=== PATIENT | male | born 1945 | race Caucasian/White ===

== ENCOUNTER → 2016-11-03 | Outpatient (CLI) | payer BC ==
[~2016-11-03] MED LIST: CALC500C70 PO; CYCL1CAP10 PO; CYCL25CA5 PO; FERR325T51 PO; LISI-729 PO; MAGNESIUM PO; MYCO250C26 PO; NXM/40 PO; PRED1SUS3 OPL; PRVC/40 PO; SERT-234 PO
--- NOTE | 2016-11-03 12:52 | DIAGNOSTIC IMAGING REPORT ---
CHEST 2 VIEWS ROUTINE CLINICAL HISTORY: Cough. COMPARISON STUDY: Chest radiograph October 07, 2007. FINDINGS: There are median sternotomy wires. No pneumothorax is present. Mild cardiomegaly is unchanged. There is no evidence of pulmonary edema. There is no lobar consolidation. Mild elevation of the right hemidiaphragm is unchanged. Apparent pleural opacity within the lower aspect of the right lower hemithorax could reflect extrapleural fat or less likely a pleural effusion. IMPRESSION: 1. Stable cardia megaly. No evidence of pulmonary edema. 2. No consolidation to suggest pneumonia. 3. Pleural opacity within the right hemithorax which likely may reflect extrapleural fat. A pleural effusion could appear similar although is considered less likely. Short-term radiographic follow-up is recommended. Electronically signed by: Everett Garrison M.D. 11/03/2016 12:51 PM Dictated Date/Time: 11/03/2016 12:48 PM
== END | disposition home or self-care (01) ==
LOC: C.RAD1850 11:56
PROVIDERS: ATTEND Family Medicine
DX: R05 Cough (principal); I51.7 Cardiomegaly; R91.8 Other nonspecific abnormal finding of lung field

== ENCOUNTER 2020-11-13 10:58 | Inpatient (IN) ==
[2020-11-13] MEDS ORDERED: clonazePAM 1 MG TAB PO PRN (12:45)
[2020-11-13] MEDS ORDERED: ALUMINUM/MAGNESIUM SUSP 30 ML UDC PO PRN (12:52)
[2020-11-13] MEDS ORDERED: HYDROmorphone INJ 0.5 MG/0.5 ML SYR IV PRN (12:52)
[2020-11-13] MEDS ORDERED: POLYETHYLENE (MIRALAX) 17 GM PACK PO PRN (12:52)
[2020-11-13] MEDS ORDERED: ONDANSETRON INJ 2 MG/ML 2 ML VIAL IV PRN (12:52)
[2020-11-13] MEDS ORDERED: SODIUM CHLORIDE 0.9% 1000ML 1,000 ML IV SCH (13:15)
--- NOTE | 2020-11-13 13:18 | XRay Report ---
SINGLE VIEW CHEST CLINICAL HISTORY: Atypical chest pain. FINDINGS: An AP, portable, upright chest radiograph is compared to study dated 07/19/2019. Correlatio n is made with radiation treatment planning CT of the chest dated 11/07/2020. The examination is degra ded by portable technique and patient rotation. The patient is status post midline sternotomy. The he art is enlarged noting atherosclerotic calcification of thoracic aorta. The pulmonary vasculature is noncongested. A large mass lesion is again seen at the right lung base with elevation of the right he midiaphragm. There is no airspace consolidation typical for pneumonia or large pleural effusion. No p neumothorax is seen. The skeletal structures are osteopenic. The bony thorax is grossly intact. IMPRESSION: 1. Cardiomegaly with no acute cardiopulmonary abnormality. 2. A large mass lesion is again seen at the right lung base.. ACT 112: Negative or not required by law. Electronically signed by: Quentin Malagon M.D. 11/13/2020 1:16 PM
[2020-11-13] MEDS: ACETAMINOPHEN 500 MG TAB PO SCH ×2 (13:48→20:57)
[2020-11-13] MEDS: HYDROmorphone INJ 1 MG/ML SYRINGE IV PRN ×2 (13:49→17:30)
--- NOTE | 2020-11-13 16:31 | History & Physical Report ---
Date of Service November 13, 2020 Assessment & Plan (1) Cancer associated pain: Patient has a right-sided pleuritic chest pain associated with his non- small cell cancer. Will use hydromorphone and scheduled Tylenol at this point time considering other agents such as nonsteroidals may consider positive care consult for pain management also considering if he should see anesthesia pain management may be helpful if we cannot control his pain with parenteral or oral agents (2) Depression with anxiety: Patient continues on clonazepam at night as needed and sertraline daily (3) Heart transplant recipient: Does not have any evidence of congestive change continues on sirolimus (4) DVT prophylaxis: Lovenox for DVT prevention Admission and Anticipated Discharge Date Admission Date: November 13, 2020 History of Present Illness Primary Care Provider: Walter Araujo MD 75-year-old male who with a history of heart transplant 2008 from ischemic cardiomyopathy with history of chronic kidney disease stage III anxiety depression hyperlipidemia. Patient has significant smoking history prior to quitting at age 55 after an UT after previous CABG the patient was bridged with an LVAD and eventually underwent cardiac transplantation in February 2008. Sometime around the end of 2019 the patient experienced weight loss and increasing cough. CT scan of the chest showed a 6 cm right lower lobe lung mass biopsy was performed with poorly differentiated non-small cell lung cancer with focal squamous differentiation notes from [facility] described T4 N0 M0 stage IIIa non-small cell lung cancer. At that time he had cardiopulmonary testing. Multidisciplinary recommendations were to possibly consider pulmonary section however his cardiopulmonary testing was unfavorable feeling that with the amount of lung removed patient would not have a good performance post procedure. Patient did visit Dr. Carty and the cancer [facility] here at [facility] and is scheduled for chemotherapy initiation on November 15 however was developing worsening pleuritic right-sided chest pain which was incapacitating and necessitated admission to the hospital for oncological pain control Allergies Allergy/AdvReac Type Severity Reaction Status Date / Time No Known Allergies Allergy Unknown Verified 10/31/20 13:29 Home Medications Medication Instructions Recorded Confirmed Type acetaminophen [Tylenol] 325 mg PO Q6H PRN 07/19/19 10/31/20 History calcium carbonate-vitamin D3 1 tab PO QAM 07/19/19 10/31/20 History [Calcium 500 With D] clonazepam 1 mg PO HS PRN 07/19/19 10/31/20 History esomeprazole magnesium 40 mg PO DAILY 07/19/19 10/31/20 History ferrous sulfate 325 mg PO BID 07/19/19 10/31/20 History magnesium 500 mg PO QAM 07/19/19 10/31/20 History sertraline 150 mg PO DAILY 07/19/19 10/31/20 History sirolimus 1 mg PO DAILY 07/19/19 10/31/20 History hydrochlorothiazide 25 mg tablet 25 mg PO DAILY 10/31/20 10/31/20 History pravastatin 40 mg tablet 20 mg PO QPM tab 10/31/20 10/31/20 History Past Med/Surg History Medical History (Updated 11/13/20 @ 16:35 by Ankit Merida MD) Coronary artery disease Dyslipidemia GERD (gastroesophageal reflux disease) Heart transplant recipient History of diverticulitis Hypertension Ischemic cardiomyopathy Surgical History (Updated 10/31/20 @ 13:31 by Eun Mehta RN) History of bronchoscopy History of cataract surgery Family History (Updated 10/31/20 @ 13:32 by Eun Mehta RN) Brother Cancer Bladder Other Family history non-contributory Social History (Updated 10/31/20 @ 13:36 by Eun Mehta RN) Smoking Status: Former smoker Tobacco Type: Cigarettes Second Hand Exposure: No; Do You Dip or Chew Tobacco: No; Hx Alcohol Use: No Hx Substance Use: No Preferred Language: Italian Communication Ability: Effective Visual Impairment: No Limitations Hearing Ability: Normal Roll Tester Required: No Beliefs That Will Affect Care: None marital status: Current Living Situation: Spouse current occupational status: employed Other Information That Helps Us Care for You: No Feels Safe at Home: Yes Safety Concerns: Feels Safe At This Time caffeine: Yes during the past year weight has: decreased > 10 lbs Dental Care, Regularly: No Physical Activity Frequency: 3-4 Times per Week Assistive Devices: Denture - Upper, Denture - Lower and Glasses Review of Systems Review of Systems: Mild distress and fatigue no headache, blurry or double vision no speech or swallowing issues Chest pain right-sided pleuritic and positional rated up to 10/10 at times no shortness of breath, cough or wheezes no abdominal pain, nausea or vomiting, diarrhea or constipation no dysuria, hematuria or frequency no focal joint pain or swelling no back pain, CVA tenderness or radicular pain no bruising, bleeding or rashes no focal signs of weakness or numbness or altered sensation no complaints of anxiety or depression.. Physical Exam Physical Exam: The patient appeared thin and somewhat chronically ill Vital signs as documented. Head exam is normocephalic atraumatic no scleral icterus Neck is without JVD, thyromegaly, or carotid bruits. Lungs are clear to auscultation, with exception of focal rales at the right base Cardiac exam, Rhythm is regular.. No murmurs, rubs or gallops. Pain is reproducible with examination of his right chest wall although no overt lesions were seen Abdominal exam reveals normal bowel sounds, soft non tender, no masses Extremities are nonedematous and both pedal pulses are present Neurologic exam is alert and oriented, no focal loss of strength or sensation Skin is without bruises or rashes Psychologically is without concerns for anxiety or depression Results & Data Results & Data ([facility]) Vital Signs (Past 12 Hours) Vital Signs Temp Pulse Resp BP Pulse Ox 11/13/20 15:46 98.1 F 96 H 20 111/66 91 11/13/20 13:37 98.1 F 98 H 16 102/66 92 chest x-ray showing large mass in the right lung base Code Status & VTE Plan VTE Prophylaxis Plan VTE Prophylaxis will be ordered: Yes PG Care Time/CCT Total # of Minutes Spent Total Time Spent with Patient: Total time spent is greater than 50% in coor dination of care (as documented) at patient's floor/unit and/or counseling patient: Coding Level of Care Code 99477 Initial Inpt Care Lvl 3 Diagnoses Cancer associated pain G89.3 Depression with anxiety F41.8 Heart transplant recipient Z94.1 DVT prophylaxis Z29.9
[2020-11-13] MEDS: SIROLIMUS 0.5 MG TABLET PO SCH (17:31)
[2020-11-14] MEDS: HYDROmorphone INJ 1 MG/ML SYRINGE IV PRN ×3 (00:07→21:01)
[2020-11-14 05:54] LABS: Hematocrit (blood only) 34.1 % (42-52); Hemoglobin 10.5 g/dL (14.0-18.0); Mean Corpuscular Hgb Conc 30.8 g/dL (32-36); Mean Platelet Volume 8.2 fL (7.4-10.4); Platelet Count 498 K/uL (130-400); RDW Coefficient of Variation 17.9 % (11.5-14.5); RDW Standard Deviation 51.4 fL (36.4-46.3); Red Blood Count 4.37 M/uL (4.7-6.1); White Blood Count 11.64 K/uL (4.8-10.8)
[2020-11-14 06:28] LABS: BUN Creatinine Ratio 20.3 (10-20); Calcium 8.4 mg/dl (8.5-10.1); Creatinine Clr Calc Pharmacy 50.6 ml/min; Est GFR (African American) 73.6; Est GFR (Non-African American) 63.5; Potassium 2.8 mmol/L (3.5-5.1)
[2020-11-14] MEDS ORDERED: POTASSIUM CHLORIDE 10 MEQ / 100ML WTR IV STA (08:26)
[2020-11-14] MEDS: ACETAMINOPHEN 500 MG TAB PO SCH ×3 (08:45→20:57)
[2020-11-14] MEDS: SIROLIMUS 0.5 MG TABLET PO SCH (08:45)
[2020-11-14] MEDS ORDERED: MAGNESIUM SULFATE / D5W 1 GM/100 ML BAG IV ONE (08:45)
[2020-11-14] MEDS: SERTRALINE HCL 50 MG TABLET PO SCH (08:45)
[2020-11-14] MEDS: HYDROmorphone HCL 2 MG TAB PO SCH ×3 (08:45→21:00)
[2020-11-14] MEDS: PANTOprazole 40 MG TAB PO SCH (08:45)
[2020-11-14] MEDS: POTASSIUM CHLORIDE CRTAB 20 MEQ TABCR PO SCH ×2 (09:59→20:57)
[2020-11-14] MEDS: ENOXAPARIN INJ 40 MG/0.4 ML SYR SQ SCH (10:00)
[2020-11-14] MEDS: POTASSIUM CHLORIDE / WTR 10 MEQ/100 ML PLCT IV SCH ×3 (10:01→12:27)
--- NOTE | 2020-11-14 12:21 | Consultation Report ---
DATE OF CONSULTATION: 11/14/2020 MEDICAL ONCOLOGY CONSULTATION REASON FOR CONSULTATION: Intractable musculoskeletal pain associated with locally advanced non-small cell lung cancer. 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 The patient was sent to the Emergency Room by Mary Ellen Maki, our physician pig machine operator helper after Mr. Carnes called in complaining of uncontrolled pain. When I saw him initially, he had been battling with musculoskeletal pain as well as anorexia. He was subsequently started on Marinol 5 mg p.o. t.i.d. as well as oxycodone 5 mg p.o. q.4-6 hours as needed. Apparently, he was becoming significantly nauseated on the oxycodone and at the same time, his pain was poorly controlled. I had subsequently prescribed fentanyl patch 12 mcg topically q.72 hours; however, Jamil was reluctant to pursue this option out of fear of nausea. Subsequently, he was admitted to [facility] yesterday basically for pain control. Again, he was originally diagnosed with lung cancer back in August, at which time he had lost approximately 40 pounds and was battling with persistent diarrhea and generalized weakness. Chest x-ray done at that time had revealed a right pulmonary anomaly that enlarged from a few months prior. A confirmatory CT scan of the chest confirmed a 6 cm right lower lobe mass, subsequently biopsied in August confirming squamous cell carcinoma. Multiple lymph nodes were harvested, which were all negative. This gentleman was suffering from stage IIIA inoperable lung cancer. Apparently, his case was presented to [facility]'s Tumor Board where most of his workup took place and it was decided to proceed with chemoradiation. Thus, Jamil was scheduled to start a combination carboplatin and paclitaxel on 11/15/2020. Thus far on admission, he has received IV Dilaudid and seems to be tolerating well. He appeared quite comfortable and perhaps could be discharged within the next 24 hours to maintain his treatment schedule. I have been asked to see Jamil today to make recommendations specifically for pain management moving forward. PAST MEDICAL HISTORY: Again, locally advanced non-small cell lung cancer (squamous cell carcinoma) stage IIIA, coronary artery disease, dyslipidemia, gastroesophageal reflux disease. He is status post heart transplant in 2007, diverticulitis, history of hypertension and ischemic cardiomyopathy. PAST SURGICAL HISTORY: Includes a heart transplant, bronchoscopy, and cataract surgery. MEDICATIONS: Include pravastatin 20 mg p.o. daily, hydrochlorothiazide 25 mg p.o. daily, sirolimus 1 mg p.o. daily, sertraline 150 mg p.o. daily, magnesium 500 mg p.o. daily, ferrous sulfate 325 mg p.o. b.i.d., esomeprazole 40 mg p.o. daily, clonazepam 1 mg p.o. at bedtime p.r.n., calcium carbonate 1 tablet p.o. daily, and Tylenol 325 p.o. q.6 hours p.r.n. ALLERGIES: No known drug allergies. SOCIAL HISTORY: The patient is and resides with his spouse. He is negative for alcohol or illicit drugs. He had a [id number] smoking history. FAMILY HISTORY: His brother suffers from bladder cancer. No other pertinent family history. REVIEW OF SYSTEMS: CONSTITUTIONAL: Most notably for pleuritic chest wall pain. Positive for anorexia. Positive for weight loss. Prescribed Marinol, has yet to start. No fevers, chills or sweats. SKIN: No rashes or lesions. No history of dermatoses. HEENT: Denies headaches, lightheadedness or dizziness. No acute visual or hearing deficits. No sinus symptoms, sore throat or dysphagia. LYMPHATICS: No history of lymphoproliferative disease. CARDIAC: No current angina or palpitations. PULMONARY: He is not acutely short of breath, dyspneic or orthopneic. No cough or hemoptysis. GASTROINTESTINAL: Negative for abdominal pain. Positive for intermittent nausea related to oral opioids. No diarrhea or constipation. No hematochezia or melena stools. GENITOURINARY: No hematuria, dysuria or urinary incontinence. PSYCHIATRIC: Positive for anxiety. ENDOCRINE: Negative for diabetes or thyroid disease. MUSCULOSKELETAL: No arthralgias or myalgias. No focal muscle weakness. NEUROLOGIC: Negative for seizure, stroke, or migraine headache. HEMATOLOGIC: Positive for microcytic anemia. PHYSICAL EXAMINATION: GENERAL: A very pleasant 75-year-old gentleman, awake, alert and appropriate, in no acute distress. SKIN: Warm, dry, noncyanotic without petechia, rash or ecchymosis. HEENT: Head: Atraumatic, normocephalic. Eyes: PERRLA, EOMI. Nares patent without rhinorrhea or discharge. Throat clear. Tongue midline. Mucous membranes are moist. No buccal lesions or ulcerations. NECK: Supple without JVD or thyromegaly. LYMPHATICS: No cervical or supraclavicular palpable nodes. HEART: Regular rate and rhythm. No clicks, rubs, murmurs or gallops. LUNGS: Clear to auscultation bilaterally. ABDOMEN: Soft, nontender, nondistended, without palpable hepatosplenomegaly. EXTREMITIES: No calf tenderness or swelling. No clubbing, cyanosis or edema. NEUROLOGICAL: He is awake, alert and oriented x3. Cranial nerves are grossly intact. LABORATORY DATA: WBC count 11,640, hemoglobin 10.5, platelet count 498,000. Sodium 132, potassium 2.8, chloride 88, carbon dioxide 40, creatinine 1.12, BUN 23. RADIOGRAPHIC DATA: Chest x-ray reveals cardiomegaly with no acute cardiopulmonary anomaly and a large mass lesion is seen in the right lung base. IMPRESSION: 1. Intractable chest wall pain/pleuritic chest pain attributable to nonsmall cell lung cancer. 2. Stage IIIA squamous cell carcinoma of the lung. 3. Depression/anxiety. 4. Status post heart transplant. 5. Anorexia/weight loss. 6. Microcytic anemia. PLAN: Jamil is a pleasant, somewhat unfortunate 75-year-old gentleman who was diagnosed with nonsmall cell lung cancer in August. Jamil initially visited with me on November accompanied by his . When I saw him, they were very concerned with the treatment delay. Apparently, he was originally worked up at the [facility] and because of miscommunication, Jamil and his had decided to seek care at [facility]. Thus, when I initially saw him, he had several clinical issues including ongoing anorexia and uncontrolled pain. Both of those issues were addressed, but unfortunately Jamil developed nausea on oxycodone plus the fact that his pain was poorly controlled. Thus, I tried to prescribe him fentanyl topical patch, which apparently he was reluctant to begin out of fear of nausea and thus continues to struggle with pain issues. He subsequently called the office and was instructed by our physician pig machine operator helper to be admitted for pain control. Hospitalist service has done a terrific job starting Dilaudid, which seems to be effective. Jamil told me at bedside this morning that his nausea has improved dramatically. Perhaps we can convert him to oral hydromorphone and send him home, so he may begin his treatment as scheduled on 11/15/2020. He has an underlying microcytic anemia that I can address once he is out, perhaps give him some IV iron to improve his iron stores. Perhaps we can get a ferritin, serum iron, and TIBC prior to discharge. Jamil understands the urgency of getting his treatment underway as unfortunately he has been delayed for nearly 3 months. I agree with medical management otherwise and I have nothing further to add. We will discuss further with the hospitalist service later on today. We will arrange for outpatient followup for Mr. Carnes. Thank you very much for allowing me to participate in his care.
[2020-11-14] MEDS: HYDROmorphone HCL 2 MG TAB PO PRN (14:01)
[2020-11-14] MEDS ORDERED: LORazepam 0.5 MG TAB PO PRN (15:07)
--- NOTE | 2020-11-14 15:13 | Hospitalist Progress Note ---
Date of Service November 14, 2020 Assessment & Plan (1) Cancer associated pain: Patient has a right-sided pleuritic chest pain associated with his non- small cell cancer. scheduled dilaudid po and prn dilaudid for breakthru, and fentanyl and continue scheduled Tylenol Pain has improved but is not controlled (2) Depression with anxiety: Patient continues on clonazepam at night as needed and sertraline daily, has some daytime anxiety will add ativan (3) Heart transplant recipient: Does not have any evidence of congestive change continues on sirolimus (4) DVT prophylaxis: Lovenox for DVT prevention Admission and Anticipated Discharge Date Admission Date: November 13, 2020 Subjective patients pain is variably controlled, still with pain and anxiety, will escalate dilaudid with addition or prn doses and start fentanly patch Review of Systems Review of Systems: Moderate pain, distress and fatigue no headache, blurry or double vision no speech or swallowing issues Pleuritic and positional chest pain, without pressure or palpitations no shortness of breath, cough or wheezes no abdominal pain, nausea or vomiting, diarrhea or constipation no dysuria, hematuria or frequency no focal joint pain or swelling no back pain, CVA tenderness or radicular pain no bruising, bleeding or rashes no focal signs of weakness or numbness or altered sensation no complaints of anxiety or depression.. Physical Exam Physical Exam: The patient appeared thin and chronically ill Vital signs as documented. Head exam is normocephalic atraumatic no scleral icterus Neck is without JVD, thyromegaly, or carotid bruits. Lungs are clear to auscultation, no focal loss of breath sounds Cardiac exam, Rhythm is regular.. No murmurs, rubs or gallops. Abdominal exam reveals normal bowel sounds, soft non tender, no masses Extremities are nonedematous and both pedal pulses are present Neurologic exam is alert and oriented, no focal loss of strength or sensation Skin is without bruises or rashes Psychologically is without concerns for anxiety or depression Results & Data Results & Data ([facility]) Vital Signs (Past 12 Hours) Vital Signs Temp Pulse Resp BP Pulse Ox 11/14/20 07:44 97.9 F 98 H 18 117/68 90 11/14/20 03:19 98.1 F 98 H 20 114/70 90 PG Care Time/CCT Total # of Minutes Spent Total Time Spent with Patient: Total time spent is greater than 50% in coordination of care (as documented) at patient's floor/unit and/or counseling patient: Coding Level of Care Code 26838 Subseq Hosp Care Lvl 2 Diagnoses Cancer associated pain G89.3 Depression with anxiety F41.8 Heart transplant recipient Z94.1 DVT prophylaxis Z29.9
[2020-11-14] MEDS ORDERED: fentaNYL 12 MCG/HR TDSY TD SCH (16:00)
[2020-11-14] MEDS: CHECK fentaNYL PATCH PLACEMENT SCH ×2 (16:28→23:53)
[2020-11-15 06:43] LABS: Hematocrit (blood only) 32.7 % (42-52); Hemoglobin 10.5 g/dL (14.0-18.0); Mean Corpuscular Hemoglobin 25.1 pg (25-34); Mean Corpuscular Hgb Conc 32.1 g/dL (32-36); Mean Corpuscular Volume 78.2 fL (80-100); Mean Platelet Volume 8.3 fL (7.4-10.4); Platelet Count 470 K/uL (130-400); RDW Coefficient of Variation 18.1 % (11.5-14.5); RDW Standard Deviation 51.4 fL (36.4-46.3); Red Blood Count 4.18 M/uL (4.7-6.1); White Blood Count 15.65 K/uL (4.8-10.8)
[2020-11-15 07:13] LABS: Basophils # (auto) 0.02 K/uL (0-0.2); Basophils % (auto) 0.1 %; Eosinophils # (auto) 0.09 K/uL (0-0.5); Eosinophils % (auto) 0.6 %; Immature Granulocytes # (auto) 0.04 K/uL (0.00-0.02); Immature Granulocytes % (auto) 0.3 %; Lymphocytes # (auto) 2.32 K/uL (1.2-3.4); Lymphocytes % (auto) 14.8 %; Monocytes # (auto) 1.02 K/uL (0.11-0.59); Monocytes % (auto) 6.5 %; Neutrophils # (auto) 12.16 K/uL (1.4-6.5); Neutrophils % (auto) 77.7 %; Poikilocytosis Present
[2020-11-15 07:24] LABS: Albumin Globulin Ratio 0.5 (0.9-2); Albumin Level 1.8 gm/dl (3.4-5.0); BUN Creatinine Ratio 20.9 (10-20); Bilirubin,Total 0.3 mg/dl (0.2-1); Calcium 8.5 mg/dl (8.5-10.1); Creatinine Clr Calc Pharmacy 60.3 ml/min; Est GFR (African American) 90.9; Est GFR (Non-African American) 78.4; Globulin 3.8 gm/dl (2.5-4.0); Magnesium 1.8 mg/dl (1.8-2.4); Potassium 3.4 mmol/L (3.5-5.1); Total Protein 5.6 gm/dl (6.4-8.2)
[2020-11-15] MEDS: PANTOprazole 40 MG TAB PO SCH (07:52)
[2020-11-15] MEDS: HYDROmorphone HCL 2 MG TAB PO SCH ×2 (07:52→20:18)
[2020-11-15] MEDS: POTASSIUM CHLORIDE CRTAB 20 MEQ TABCR PO SCH (07:52)
[2020-11-15] MEDS: SERTRALINE HCL 50 MG TABLET PO SCH (07:53)
[2020-11-15] MEDS: ACETAMINOPHEN 500 MG TAB PO SCH ×3 (07:53→20:18)
[2020-11-15] MEDS: CHECK fentaNYL PATCH PLACEMENT SCH ×3 (07:53→23:28)
[2020-11-15] MEDS: SIROLIMUS 0.5 MG TABLET PO SCH (07:53)
[2020-11-15] MEDS: ENOXAPARIN INJ 40 MG/0.4 ML SYR SQ SCH (07:53)
[2020-11-15 09:00] LABS: Ferritin 976.9 ng/ml (8-388)
[2020-11-15] MEDS: HYDROmorphone INJ 1 MG/ML SYRINGE IV PRN (12:17)
--- NOTE | 2020-11-15 15:32 | Hospitalist Progress Note ---
Date of Service November 15, 2020 Assessment & Plan (1) Cancer associated pain: Patient has a right-sided pleuritic chest pain associated with his non- small cell cancer. increase scheduled dilaudid to 4 mg po and prn dilaudid for breakthru, and 12 mcg fentanyl and continue scheduled Tylenol Pain has improved but is not controlled (2) Depression with anxiety: Patient continues on clonazepam at night as needed and sertraline daily, has some daytime anxiety will add ativan (3) Heart transplant recipient: Does not have any evidence of congestive change continues on sirolimus (4) DVT prophylaxis: Lovenox for DVT prevention Admission and Anticipated Discharge Date Admission Date: November 13, 2020 Subjective patients feels pain is poorly controlled, still with pain and anxiety, will escalate dilaudid with addition or prn doses and start fentanyl patch Review of Systems Review of Systems: Moderate pain, distress and fatigue no headache, blurry or double vision no speech or swallowing issues Pleuritic and positional chest pain, without pressure or palpitations no shortness of breath, cough or wheezes no abdominal pain, nausea or vomiting, diarrhea or constipation no dysuria, hematuria or frequency no focal joint pain or swelling no back pain, CVA tenderness or radicular pain no bruising, bleeding or rashes no focal signs of weakness or numbness or altered sensation no complaints of anxiety or depression.. Physical Exam Physical Exam: The patient appeared thin and chronically ill Vital signs as documented. Head exam is normocephalic atraumatic no scleral icterus Neck is without JVD, thyromegaly, or carotid bruits. Lungs are clear to auscultation, no focal loss of breath sounds Cardiac exam, Rhythm is regular.. No murmurs, rubs or gallops. Abdominal exam reveals normal bowel sounds, soft non tender, no masses Extremities are nonedematous and both pedal pulses are present Neurologic exam is alert and oriented, no focal loss of strength or sensation Skin is without bruises or rashes Psychologically is without concerns for anxiety or depression Results & Data Results & Data ([facility]) Vital Signs (Past 12 Hours) Vital Signs Temp Pulse Resp BP BP Pulse Ox 11/15/20 12:00 97.9 F 98 H 18 114/63 90 11/15/20 07:03 98.2 F 102 H 18 104/61 90 11/15/20 03:51 98.2 F 96 H 18 112/64 90 PG Care Time/CCT Total # of Minutes Spent Total Time Spent with Patient: Total time spent is greater than 50% in coordination of care (as documented) at patient's floor/unit and/or counseling patient: Coding Level of Care Code 02748 Subseq Hosp Care Lvl 2 Diagnoses Cancer associated pain G89.3 Depression with anxiety F41.8 Heart transplant recipient Z94.1 DVT prophylaxis Z29.9
[2020-11-16] MEDS: HYDROmorphone HCL 2 MG TAB PO PRN (05:51)
[2020-11-16] MEDS: ENOXAPARIN INJ 40 MG/0.4 ML SYR SQ SCH (08:30)
[2020-11-16] MEDS: PANTOprazole 40 MG TAB PO SCH (08:31)
[2020-11-16] MEDS: HYDROmorphone HCL 2 MG TAB PO SCH (08:31)
[2020-11-16] MEDS: SIROLIMUS 0.5 MG TABLET PO SCH (08:32)
[2020-11-16] MEDS: SERTRALINE HCL 50 MG TABLET PO SCH (08:32)
[2020-11-16] MEDS: ACETAMINOPHEN 500 MG TAB PO SCH ×2 (08:33→14:27)
[2020-11-16] MEDS: CHECK fentaNYL PATCH PLACEMENT SCH ×2 (08:34→16:52)
[2020-11-16] MEDS ORDERED: clonazePAM 0.25 MG TAB PO SCH (09:00)
[2020-11-16] MEDS ORDERED: SENNA 8.6 MG TAB PO SCH (09:00)
[2020-11-16 16:30] VITALS: BP 117/70; PULSE 96; TEMP 98.2; O2SAT 93
--- NOTE | 2020-11-16 18:11 | Discharge Summary ---
Date of Service November 16, 2020 Admission HPI Per Admitting Provider 75-year-old male who with a history of heart transplant 2007 from ischemic cardiomyopathy with history of chronic kidney disease stage III anxiety depression hyperlipidemia. Patient has significant smoking history prior to quitting at age 55 after an NC after previous CABG the patient was bridged with an LVAD and eventually underwent cardiac transplantation in February 2008. Sometime around the end of 2019 the patient experienced weight loss and increasing cough. CT scan of the chest showed a 6 cm right lower lobe lung mass biopsy was performed with poorly differentiated non-small cell lung cancer with focal squamous differentiation notes from [facility] described T4 N0 M0 stage IIIa non-small cell lung cancer. At that time he had cardiopulmonary testing. Multidisciplinary recommendations were to possibly consider pulmonary section however his cardiopulmonary testing was unfavorable feeling that with the amount of lung removed patient would not have a good performance post procedure. Patient did visit Dr. Carty and the cancer [facility] here at [facility] and is scheduled for chemotherapy initiation on November 15 however was developing worsening pleuritic right-sided chest pain which was incapacitating and necessitated admission to the hospital for oncological pain control Principal Diagnosis cancer related pain. lung cancer Discharge Exam The patient appeared well nourished and normally developed, he claims to have no significant pain Vital signs as documented. Head exam is normocephalic atraumatic no scleral icterus Neck is without JVD, thyromegaly, or carotid bruits. Lungs are diminished at the base on the right Cardiac exam, Rhythm is regular.. No murmurs, rubs or gallops. Abdominal exam reveals normal bowel sounds, soft non tender, no masses Extremities are nonedematous and both pedal pulses are present Neurologic exam is alert and oriented, no focal loss of strength or sensation Skin is without bruises or rashes Psychologically is without concerns for anxiety or depression Discharge Data Allergies Allergy/AdvReac Type Severity Reaction Status Date / Time No Known Allergies Allergy Unknown Verified 10/31/20 13:29 Consultations 11/13/20 12:55 Consult Hematology Routine Hospital Course (1) Cancer associated pain: Patient has a right-sided pleuritic chest pain associated with his non- small cell cancer. increase scheduled dilaudid to 4 mg po and prn dilaudid for breakthru, and 12 mcg fentanyl and continue scheduled Tylenol Pain has improved but is not controlled (2) Depression with anxiety: Patient continues on clonazepam at night as needed and sertraline daily, has some daytime anxiety will add ativan (3) Heart transplant recipient: Does not have any evidence of congestive change continues on sirolimus (4) DVT prophylaxis: Lovenox for DVT prevention Total Time Total Time Spent Total Time Spent (In Minutes): It required greater than 30 minutes to prepare this patient for discharge Discharge Plan Discharge Items Patient Disposition: Home - Self-Care Reason For Visit: LUNG CA,NEEDS PAIN CONTROL Discharge Diagnosis: oncologic related pain low potassium Activity: Resume your previous activity Non-emergency contact: Primary Care Provider and Oncologist Call non-emergency contact if: you have any medication questions and your symptoms worsen Follow-up/Referrals: Walter Araujo MD [Primary Care Provider] - Diet: Regular Addtl Attending Provider Instructions: please work hard to improve your nutrition, consider taking a multiple vitamin with iron, or even a vitamin, and consider ensure or boost, if your appetite remains poor continue to talk to Dr Carty about your appetite take a daily potassium supplement please be patient with your fentanyl patch, it may need to be adjusted, as well as your pain medicine continue to take 1000mg of tylenol three times a day Pending Studies at Discharge: No Stand-Alone Forms: My [facility] [employer], Opioid Pain Management, Smoking Cessation Medications and DC Order Prescriptions: New fentanyl 12 mcg/hr Patch 72 Hour 12 mcg transdermal Q72H Qty: 10 RF: 0 potassium chloride [Klor-Con M20] 20 mEq Tablet,Er Particles/Crystals 20 meq PO DAILY Qty: 30 RF: 0 hydromorphone [Dilaudid] 2 mg tablet 4 mg PO BID Qty: 60 RF: 0 Continued sertraline 100 mg tablet 150 mg PO DAILY RF: 0 clonazepam 1 mg tablet 1 mg PO HS PRN (Reason: Restless Leg(S)) RF: 0 ferrous sulfate 325 mg (65 mg iron) Tablet 325 mg PO BID RF: 0 esomeprazole magnesium 40 mg capsule,delayed release(DR/EC) 40 mg PO DAILY RF: 0 magnesium 250 mg Tablet 500 mg PO QAM RF: 0 calcium carbonate-vitamin D3 [Calcium 500 With D] 500 mg(1,250mg) -400 unit Tablet 1 tab PO QAM RF: 0 sirolimus 0.5 mg tablet 1 mg PO DAILY RF: 0 Changed acetaminophen [Tylenol] 325 mg Tablet 1,000 mg PO TID PRN (Reason: Pain) Qty: 0 RF: 0 Discontinued hydrochlorothiazide 25 mg tablet 25 mg PO DAILY RF: 0 pravastatin 40 mg tablet 20 mg PO QPM RF: 0 Discharge Orders: Discharge Order (Routine); Ordered 11/16/20 Ordered By: Ankit Silverman/Other Patient Handouts: Pain Medicines for Cancer Admission Data Admit Date/Time: 11/13/20 12:00 Attending Provider: Ankit Merida Admit Provider: Bhupendra Kelsey Primary Care Provider: Walter Araujo Other Providers: Gerald Carty V. Other Interventions: Discharge Summary Assessment (RN) Last Done: 11/16/20 16:42 Coding Level of Care Code D/C Day Management >30 mins Diagnoses Cancer associated pain G89.3 Depression with anxiety F41.8 Heart transplant recipient Z94.1 DVT prophylaxis Z29.9
== END 2020-11-16 17:29 | disposition home or self-care (01) | DRG 948 ==
LOC: SUATTDRO 12:00 → 2N 12:00 → 3E 11-15 23:22

== ENCOUNTER 2021-12-13 15:20 | Inpatient (IN) ==
[2021-12-13] MEDS ORDERED: CEFEPIME 2,000 MG/20 ML VIAL IV STA (15:53)
--- NOTE | 2021-12-13 16:00 | Emergency Department Note ---
Impression & Plan Hypoxia, SOB (shortness of breath), Pneumonia, Immunocompromised, History of heart transplant ED Provider Note NAME: POLA LITTLE AGE: 76 SEX: M : 1945 ARRIVES VIA: Walk-In INFORMANT: [Patient] ED PROVIDER(S): [Quentin Ngo MD] CHIEF COMPLAINT: Shortness of breath HISTORY OF PRESENT ILLNESS: Patient is a 76-year-old male with a history of heart transplant, lung cancer. He presents to the ER with shortness of breath and a dry cough that has been present for about a week. The shortness of breath is noticeable with exertion. There has been no fever, no chills. The patient spoke with the cancer center today, he was referred to the ER for an evaluation. In triage, his O2 saturation was noted to be 86%, he does not wear oxygen. His O2 saturation improved with nasal cannula O2 supplementation. The patient has finished his radiation and chemotherapy for his lung cancer. He is now receiving infusion therapy every 28 days. He is doing well from a heart transplant standpoint. He is on his immunosuppressive medications as directed. 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 He has done well since. He has no issues currently with headache or confusion or one-sided weakness. REVIEW OF SYSTEMS: See HPI for pertinent positives and negatives. A total of ten systems were reviewed and were otherwise negative. PMHx/PSHx: See Below SOCIAL HISTORY: See Below. PHYSICAL EXAM: GENERAL: Patient is in no acute distress. HEENT: No acute trauma, normocephalic atraumatic, mucous membranes moist, no nasal congestion, no scleral icterus. NECK: No stridor, no adenopathy, no meningismus, trachea is midline. LUNGS: Markedly diminished breath sounds on the right with some crackles on the right. No obvious respiratory distress. The left lung is clear. HEART: Subtle systolic murmur, regular rate and rhythm. ABDOMEN: Soft, nontender, bowel sounds positive, no hernias, no peritonitis. EXTREMITIES: No cyanosis or edema, full range of motion of all the joints with out pain or difficulty, no signs for acute trauma. NEUROLOGIC: Oriented x 3, no acute motor or sensory deficits, no focal weakness. SKIN: No rash, no jaundice, no diaphoresis. DIFFERENTIAL DIAGNOSIS: Reactive airway disease, COVID-19, influenza, pneumonia, pneumothorax, COPD, CHF, infection, cardiac ischemia, pulmonary embolism, bronchitis, musculoskeletal, gastrointestinal, as well as other pathologies. EMERGENCY DEPARTMENT COURSE/PROCEDURES: ECG: Indication was shortness of breath. The ECG shows a normal sinus rhythm with a rate of 96. There is a right bundle branch block. There is potential old inferior infarct noted. No ST elevation, no PVCs. The QTc is 487. Compared to an ECG from 26 August 2021, I see no significant change. Continuous Cardiac Monitoring: An order was placed for continuous cardiac monitoring. The monitor shows a rate of 103 with sinus tachycardia. Critical Care Note: I have personally spent 41 minutes of critical care time in the direct management of this patient. This includes bedside care, interpretation of diagnostic studies, and testing, discussion with consultants, patient, and family members, and other required patient management activities. This 41 minutes is in excess of all separately billable procedures. MEDICAL DECISION MAKING: There is no leukocytosis. Patient has a very mild anemia with a hemoglobin of 13.7. There was a normal platelet count. INR was slightly elevated at 1.2. No renal failure. No significant electrolyte abnormality. No significant liver enzyme elevation. ECG shows a normal sinus rhythm, no obvious ischemia. Cardiac enzyme testing x1 is not consistent with acute cardiac injury. Respiratory bio fire panel testing was completely negative. Chest x-ray showed some cardiomegaly and some potential mild CHF--some chronic findings also noted. Chest CT did not show any PE. Multifocal patchy pneumonia was seen. The patient presented hypoxic and short of breath. He was given nasal cannula O2 supplementation. He received IV cefepime and IV doxycycline as antibiotic coverage. The patient has a history of heart transplant. He is immunocompromised. He presents hypoxic and short of breath. He has pneumonia by CT imaging. Given his history and findings, I do think a hospital stay is warranted. I spoke with the patient, I talked to the casey saw operator. The on-call hospitalist has been consulted. Past Med/Surg History Medical History Coronary artery disease Dyslipidemia GERD (gastroesophageal reflux disease) Heart transplant recipient History of diverticulitis Hypertension Ischemic cardiomyopathy Surgical History History of bronchoscopy History of cataract surgery Family History Brother Cancer Bladder Other Family history non-contributory Social History Smoking Status: Former smoker Tobacco Type: Cigarettes Second Hand Exposure: No; Hx Alcohol Use: No Hx Substance Use: No Preferred Language: Serbian Communication Ability: Effective Visual Impairment: No Limitations Hearing Ability: Normal 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 Required: No Beliefs That Will Affect Care: None marital status: Current Living Situation: Spouse current occupational status: employed Feels Safe at Home: Yes caffeine: Yes during the past year weight has: decreased > 10 lbs Dental Care, Regularly: No Physical Activity Frequency: 3-4 Times per Week Assistive Devices: None Allergies Allergies Allergy/AdvReac Type Severity Reaction Status Date / Time lisinopril Allergy Intermediate FACE Verified 12/13/21 17:28 SWELLED Home Meds Home Medications Medication Instructions Recorded Confirmed calcium carbonate 500 mg-vitamin 1 tab PO QAM 07/19/19 12/13/21 D3 10 mcg (400 unit) tablet (Calcium 500 With D) clonazepam 1 mg tablet 1 mg PO HS PRN 07/19/19 12/13/21 ferrous sulfate 325 mg (65 mg 325 mg PO BID 07/19/19 12/13/21 iron) tablet magnesium 250 mg tablet 500 mg PO QAM 07/19/19 12/13/21 sertraline 100 mg tablet 150 mg PO DAILY 07/19/19 12/13/21 pravastatin 20 mg tablet 40 mg PO HS 08/26/21 12/13/21 esomeprazole magnesium 40 mg 20 mg PO DAILY cap 11/05/21 12/13/21 capsule,delayed release sirolimus 1 mg tablet 2 mg PO QAM 12/13/21 12/13/21 Previous Rx's Medication Instructions Recorded acetaminophen 325 mg tablet 1,000 mg PO TID PRN #0 tab 11/15/20 (Tylenol) potassium chloride 20 mEq 20 meq PO DAILY #30 tab 11/15/20 tablet,extended release(part/cryst) (Klor-Con M) Results & Data (ED) Vital Signs Vital Signs - 24 hr 12/13/21 15:24 12/13/21 15:37 12/13/21 15:47 Temperature 36.2 C L Temperature Source Temporal Artery Scan Pulse Rate 103 H 95 H Pulse Rate from SpO2 Sensor 96 H Respiratory Rate 16 21 Respiratory Effort / Characteristics Non-Labored Respiratory Depth Normal Blood Pressure 158/84 H Blood Pressure Mean 108 Pulse Oximetry 86 L 99 Oxygen Delivery Method Room Air Room Air Nasal Cannula Oxygen Flow Rate 99 4 Sepsis Recent Fever Within 48 Hours No Sepsis New/Unexplained Change in Mental Status No Sepsis Action Taken by Nursing No Action Required 12/13/21 16:00 12/13/21 16:30 12/13/21 17:00 Temperature Temperature Source Pulse Rate 96 H 94 H 94 H Pulse Rate from SpO2 Sensor 95 H 95 H 98 H Respiratory Rate 25 H 35 H 32 H Respiratory Effort / Characteristics Respiratory Depth Blood Pressure 144/89 H 136/84 134/83 Blood Pressure Mean 107 101 100 Pulse Oximetry 98 95 97 Oxygen Delivery Method Nasal Cannula Nasal Cannula Nasal Cannula Oxygen Flow Rate 4 4 4 Sepsis Recent Fever Within 48 Hours Sepsis New/Unexplained Change in Mental Status Sepsis Action Taken by Nursing 12/13/21 17:30 12/13/21 18:00 12/13/21 18:30 Temperature Temperature Source Pulse Rate 88 91 H 88 Pulse Rate from SpO2 Sensor 91 H 93 H 91 H Respiratory Rate 20 20 20 Respiratory Effort / Characteristics Respiratory Depth Blood Pressure 139/79 141/83 H 129/77 Blood Pressure Mean 99 102 94 Pulse Oximetry 96 98 96 Oxygen Delivery Method Nasal Cannula Nasal Cannula Nasal Cannula Oxygen Flow Rate 4 4 4 Sepsis Recent Fever Within 48 Hours Sepsis New/Unexplained Change in Mental Status Sepsis Action Taken by Longterm Medications Current Medication List: was personally reviewed by me Laboratory Data Attestation: I reviewed the patient's lab results. Result diagrams: 12/13/21 15:45 12/13/21 15:45 Lab Results 12/13/21 12/13/21 12/13/21 Range/Units 15:45 15:45 15:45 WBC 9.72 (4.8-10.8) K/uL RBC 5.55 (4.7-6.1) M/uL Hgb 13.7 L (14.0-18.0) g/dL Hct 44.0 (42-52) % MCV 79.3 L (80-100) fL MCH 24.7 L (25-34) pg MCHC 31.1 L (32-36) g/dL RDW Std Deviation 47.5 H (36.4-46.3) fL RDW Coeff of Jazmin 16.5 H (11.5-14.5) % Plt Count 258 (130-400) K/uL MPV 9.1 (7.4-10.4) fL Immature Gran % (Auto) 0.2 % Neut % (Auto) 62.6 % Lymph % (Auto) 16.5 % Quay % (Auto) 16.2 % Eos % (Auto) 4.3 % Baso % (Auto) 0.2 % Neut # (Auto) 6.09 (1.4-6.5) K/uL Lymph # (Auto) 1.60 (1.2-3.4) K/uL Quay # (Auto) 1.57 H (0.11-0.59) K/uL Eos # (Auto) 0.42 (0-0.5) K/uL Baso # (Auto) 0.02 (0-0.2) K/uL Immature Gran # (Auto) 0.02 (0.00-0.02) K/uL PT 12.5 H (9.0-12.0) Seconds INR 1.2 H (0.9-1.1) APTT 33.6 H (21.0-31.0) Seconds PTT Ratio 1.2 Sodium (136-145) mmol/L Potassium (3.5-5.1) mmol/L Chloride (98-107) mmol/L Carbon Dioxide (21-32) mmol/L Anion Gap (3-11) BUN (6-23) mg/dl Creatinine (0.6-1.4) mg/dl Est Cr Clr Drug Dosing ml/min Est GFR ( Amer) ml/min Est GFR (Non-Af Amer) ml/min BUN/Creatinine Ratio (10-20) Glucose (70-99(Fasting)) mg/dl Lactate (0.4-2.0) mmol/L Calcium (8.5-10.1) mg/dl Magnesium (1.7-2.4) mg/dl Total Bilirubin (0.2-1.0) mg/dl AST (13-39) U/L ALT (7-52) U/L Alkaline Phosphatase (34-104) U/L Troponin I High Sens 9.1 (0-20) pg/ml Total Protein (6.0-8.3) gm/dl Albumin (3.4-5.0) gm/dl Globulin (2.5-4.0) gm/dl Albumin/Globulin Ratio (0.9-2) Adenovirus (PCR) (NotDetected) B. pertussis DNA (PCR) (NotDetected) B.parapertussis DNA PCR (NotDetected) C. pneumoniae DNA (PCR) (NotDetected) Coronavirus OC43 (PCR) (NotDetected) Coronavirus HKU1 (PCR) (NotDetected) Coronavirus 229E (PCR) (NotDetected) SARS-CoV-2 (PCR) (NotDetected) Coronavirus NL63 (PCR) (NotDetected) Human Metapneumovir PCR (NotDetected) Influenza Type A (PCR) (NotDetected) Influenza Type B (PCR) (NotDetected) M. pneumoniae (PCR) (NotDetected) Parainfluenza 1 (PCR) (NotDetected) Parainfluenza 2 (PCR) (NotDetected) Parainfluenza 3 (PCR) (NotDetected) Parainfluenza 4 (PCR) (NotDetected) RSV (PCR) (NotDetected) Entero/Rhino (PCR) (NotDetected) 12/13/21 12/13/21 12/13/21 Range/Units 15:45 16:03 16:03 WBC (4.8-10.8) K/uL RBC (4.7-6.1) M/uL Hgb (14.0-18.0) g/dL Hct (42-52) % MCV (80-100) fL MCH (25-34) pg MCHC (32-36) g/dL RDW Std Deviation (36.4-46.3) fL RDW Coeff of Jazmin (11.5-14.5) % Plt Count (130-400) K/uL MPV (7.4-10.4) fL Immature Gran % (Auto) % Neut % (Auto) % Lymph % (Auto) % Quay % (Auto) % Eos % (Auto) % Baso % (Auto) % Neut # (Auto) (1.4-6.5) K/uL Lymph # (Auto) (1.2-3.4) K/uL Quay # (Auto) (0.11-0.59) K/uL Eos # (Auto) (0-0.5) K/uL Baso # (Auto) (0-0.2) K/uL Immature Gran # (Auto) (0.00-0.02) K/uL PT (9.0-12.0) Seconds INR (0.9-1.1) APTT (21.0-31.0) Seconds PTT Ratio Sodium 139 (136-145) mmol/L Potassium 4.6 (3.5-5.1) mmol/L Chloride 99 (98-107) mmol/L Carbon Dioxide 31 (21-32) mmol/L Anion Gap 9 (3-11) BUN 25 H (6-23) mg/dl Creatinine 1.40 (0.6-1.4) mg/dl Est Cr Clr Drug Dosing 41.3 ml/min Est GFR ( Amer) 55.8 ml/min Est GFR (Non-Af Amer) 48.1 ml/min BUN/Creatinine Ratio 17.9 (10-20) Glucose 82 (70-99(Fasting)) mg/dl Lactate 0.5 (0.4-2.0) mmol/L Calcium 9.0 (8.5-10.1) mg/dl Magnesium 1.9 (1.7-2.4) mg/dl Total Bilirubin 0.6 (0.2-1.0) mg/dl AST 12 L (13-39) U/L ALT 7 (7-52) U/L Alkaline Phosphatase 105 H (34-104) U/L Troponin I High Sens (0-20) pg/ml Total Protein 6.5 (6.0-8.3) gm/dl Albumin 3.7 (3.4-5.0) gm/dl Globulin 2.8 (2.5-4.0) gm/dl Albumin/Globulin Ratio 1.3 (0.9-2) Adenovirus (PCR) Not Detected (NotDetected) B. pertussis DNA (PCR) Not Detected (NotDetected) B.parapertussis DNA PCR Not Detected (NotDetected) C. pneumoniae DNA (PCR) Not Detected (NotDetected) Coronavirus OC43 (PCR) Not Detected (NotDetected) Coronavirus HKU1 (PCR) Not Detected (NotDetected) Coronavirus 229E (PCR) Not Detected (NotDetected) SARS-CoV-2 (PCR) Not Detected (NotDetected) Coronavirus NL63 (PCR) Not Detected (NotDetected) Human Metapneumovir PCR Not Detected (NotDetected) Influenza Type A (PCR) Not Detected (NotDetected) Influenza Type B (PCR) Not Detected (NotDetected) M. pneumoniae (PCR) Not Detected (NotDetected) Parainfluenza 1 (PCR) Not Detected (NotDetected) Parainfluenza 2 (PCR) Not Detected (NotDetected) Parainfluenza 3 (PCR) Not Detected (NotDetected) Parainfluenza 4 (PCR) Not Detected (NotDetected) RSV (PCR) Not Detected (NotDetected) Entero/Rhino (PCR) Not Detected (NotDetected) Administered Medications Discontinued Medications Cefepime HCl (Maxipime) 2,000 mg in 20 mls @ 5 mls/min IV NOW STA; Protocol Stop: 12/13/21 15:56 Last Admin: 12/13/21 16:19 Dose: 5 mls/min Documented by: [id number] Doxycycline Hyclate 100 mg/ (Dextrose) 110 mls @ 50 mls/hr IV NOW STA Stop: 12/13/21 20:15 Last Admin: 12/13/21 19:00 Dose: 50 mls/hr Documented by: [id number] Ioversol (Optiray 320 125ml) 120 ml IV ONCE ONE Stop: 12/13/21 17:08 Last Admin: 12/13/21 17:09 Dose: 120 ml Documented by: [id number] Imaging Data Radiologist's Impression: Chest CTA 12/13/21 15:53 CT ANGIOGRAPHY OF THE CHEST, PULMONARY EMBOLUS PROTOCOL CLINICAL HISTORY: Pneumonia. Shortness of breath. Non-small cell lung cancer. COMPARISON STUDY: Chest CT November 04, 2021. Chest radiograph performed earlier today. TECHNIQUE: Following IV administration of 120 mL of Optiray, helical axial images of the chest were obtained utilizing the pulmonary embolus protocol. Maximal intensity projections and sagittal and coronal reformats were viewed on an independent 3D workstation. IV contrast was administered without complication. Automated exposure control was utilized for the study. A dose lowering technique was utilized adhering to the principles of ALARA. CT DOSE: 372.55 mGy.cm FINDINGS: No pulmonary emboli are identified although right lower lobe pulmonary arteries are suboptimally assessed due to mixing artifact. There is no thoracic aortic dissection. Cardiomegaly is noted. No pericardial effusion. There are median sternotomy wires and postoperative findings from bypass grafting. No enlarged axillary, mediastinal or hilar lymph nodes are present. A 8.5 x 5.7 cm subpleural mass within the right lower lobe is similar to CT of October 27, 2021. Right-sided pleural thickening is similar to present. There is a trace right pleural effusion. There is no pneumothorax. Central airways are patent. There is been interval development of numerous irregular nodular opacities throughout the lungs as well as groundglass opacities. No cavitation is present. No suspicious lesions within the visualized bony thorax. Mild splenomegaly is unchanged. Upper abdomen is unremarkable. IMPRESSION: 1. No pulmonary emboli identified although right lower lobe pulmonary arteries suboptimally assessed due to mixing artifact. 2. No significant change in an 8.5 x 5.7 cm round subpleural right lower lobe mass consistent with malignancy. 3. Interval development of numerous groundglass and irregular densities throughout the lungs. These favor an infectious process. Follow-up chest CT in 3 months is recommended to exclude the less likely possibility of metastatic disease. ACT 112: Negative or not required by law. Electronically signed by: Everett Garrison M.D. 12/13/2021 5:28 PM Chest X-Ray 12/13/21 15:53 XR chest 1V portable HISTORY: 76 years-old Male SOB acute shortness of breath COMPARISON: Chest radiograph 08/26/2021, chest CT 11/04/2021 TECHNIQUE: Portable AP view of the chest FINDINGS: Cardiomegaly with pulmonary vascular congestion and progressively worsened inte rstitial opacities. Prior median sternotomy. No pneumothorax. Emphysema. Small right pleural effusion. Right basilar airspace opacities obscuring the patient's known right lung mass. Irregular right upper lobe nodular density. Bones appear grossly intact. IMPRESSION: 1. Cardiomegaly with pulmonary vascular congestion and progressively worsened interstitial opacities suggestive of pulmonary edema versus interstitial pneumonitis. 2. Small right pleural effusion with right lung base opacities. 3. The previously described subpleural mass of the right lower lobe is better seen on the comparison chest CT. ACT 112: Negative or not required by law. The above report was generated using voice recognition software. It may contain grammatical, syntax or spelling errors. Electronically signed by: Phoenix Kolb M.D. 12/13/2021 4:43 PM Discharge Plan Visit Data Chief Complaint: Shortness of Breath/Dyspnea Stated Complaint: SHORTNESS OF BREATH ED Provider: Quentin Ngo Discharge Problem: Hypoxia, SOB (shortness of breath), Pneumonia, Immunocompromised, History of heart transplant Patient Disposition: Admitted As Inpatient Condition: Fair Discharge Instructions Interventions: ED Discharge Assessment Last Done: 12/13/21 19:39
[2021-12-13 16:26] LABS: Basophils # (auto) 0.02 K/uL (0-0.2); Basophils % (auto) 0.2 %; Eosinophils # (auto) 0.42 K/uL (0-0.5); Eosinophils % (auto) 4.3 %; Hemoglobin 13.7 g/dL (14.0-18.0); Immature Granulocytes # (auto) 0.02 K/uL (0.00-0.02); Immature Granulocytes % (auto) 0.2 %; Lymphocytes % (auto) 16.5 %; Mean Corpuscular Hemoglobin 24.7 pg (25-34); Mean Corpuscular Hgb Conc 31.1 g/dL (32-36); Mean Corpuscular Volume 79.3 fL (80-100); Mean Platelet Volume 9.1 fL (7.4-10.4); Monocytes # (auto) 1.57 K/uL (0.11-0.59); Monocytes % (auto) 16.2 %; Neutrophils # (auto) 6.09 K/uL (1.4-6.5); Neutrophils % (auto) 62.6 %; Platelet Count 258 K/uL (130-400); RDW Coefficient of Variation 16.5 % (11.5-14.5); RDW Standard Deviation 47.5 fL (36.4-46.3); Red Blood Count 5.55 M/uL (4.7-6.1); White Blood Count 9.72 K/uL (4.8-10.8)
[2021-12-13 16:29] LABS: INR 1.2 (0.9-1.1); Partial Thromboplastin Ratio 1.2; Partial Thromboplastin Time 33.6 Seconds (21.0-31.0); Prothrombin Time 12.5 Seconds (9.0-12.0)
[2021-12-13 16:39] LABS: Albumin Globulin Ratio 1.3 (0.9-2); Albumin Level 3.7 gm/dl (3.4-5.0); BUN Creatinine Ratio 17.9 (10-20); Bilirubin,Total 0.6 mg/dl (0.2-1.0); Creatinine Clr Calc Pharmacy 41.3 ml/min; Est GFR (African American) 55.8 ml/min; Est GFR (Non-African American) 48.1 ml/min; Globulin 2.8 gm/dl (2.5-4.0); Magnesium 1.9 mg/dl (1.7-2.4); Potassium 4.6 mmol/L (3.5-5.1); Total Protein 6.5 gm/dl (6.0-8.3)
--- NOTE | 2021-12-13 16:44 | XRay Report ---
XR chest 1V portable HISTORY: 76 years-old Male SOB acute shortness of breath COMPARISON: Chest radiograph 08/26/2021, chest CT 11/04/2021 TECHNIQUE: Portable AP view of the chest FINDINGS: Cardiomegaly with pulmonary vascular congestion and progressively worsened interstitial opacities. Pr ior median sternotomy. No pneumothorax. Emphysema. Small right pleural effusion. Right basilar airspa ce opacities obscuring the patient's known right lung mass. Irregular right upper lobe nodular densit y. Bones appear grossly intact. IMPRESSION: 1. Cardiomegaly with pulmonary vascular congestion and progressively worsened interstitial opacities suggestive of pulmonary edema versus interstitial pneumonitis. 2. Small right pleural effusion with right lung base opacities. 3. The previously described subpleural mass of the right lower lobe is better seen on the comparison chest CT. ACT 112: Negative or not required by law. The above report was generated using voice recognition software. It may contain grammatical, syntax o r spelling errors. Electronically signed by: Phoenix Kolb M.D. 12/13/2021 4:43 PM
[2021-12-13] MEDS ORDERED: OPTIRAY 320 125ml IV ONE (17:07)
[2021-12-13 17:12] LABS: Adenovirus PCR Not Detected (NotDetected); Bordetella parapertussis PCR Not Detected (NotDetected); Bordetella pertussis PCR Not Detected (NotDetected); Chlamydia pneumoniae PCR Not Detected (NotDetected); Coronavirus 229E PCR Not Detected (NotDetected); Coronavirus CoV-2 (COVID19)PCR Not Detected (NotDetected); Coronavirus HKU1 PCR Not Detected (NotDetected); Coronavirus NL63 PCR Not Detected (NotDetected); Coronavirus OC43PCR Not Detected (NotDetected); Human Metapneumovirus PCR Not Detected (NotDetected); Influenza A PCR Not Detected (NotDetected); Influenza B PCR Not Detected (NotDetected); Mycoplasma pneumoniae PCR Not Detected (NotDetected); Parainfluenza Virus 1 PCR Not Detected (NotDetected); Parainfluenza Virus 2 PCR Not Detected (NotDetected); Parainfluenza Virus 3 PCR Not Detected (NotDetected); Parainfluenza Virus 4 PCR Not Detected (NotDetected); Respiratory Syncytial VirusPCR Not Detected (NotDetected); Rhinovirus/Enterovirus PCR Not Detected (NotDetected)
--- NOTE | 2021-12-13 17:31 | CT Scan Report ---
CT ANGIOGRAPHY OF THE CHEST, PULMONARY EMBOLUS PROTOCOL CLINICAL HISTORY: Pneumonia. Shortness of breath. Non-small cell lung cancer. COMPARISON STUDY: Chest CT November 04, 2021. Chest radiograph performed earlier today. TECHNIQUE: Following IV administration of 120 mL of Optiray, helical axial images of the chest were o btained utilizing the pulmonary embolus protocol. Maximal intensity projections and sagittal and cor onal reformats were viewed on an independent 3D workstation. IV contrast was administered without co mplication. Automated exposure control was utilized for the study. A dose lowering technique was ut ilized adhering to the principles of ALARA. CT DOSE: 372.55 mGy.cm FINDINGS: No pulmonary emboli are identified although right lower lobe pulmonary arteries are subopt imally assessed due to mixing artifact. There is no thoracic aortic dissection. Cardiomegaly is noted . No pericardial effusion. There are median sternotomy wires and postoperative findings from bypass g rafting. No enlarged axillary, mediastinal or hilar lymph nodes are present. A 8.5 x 5.7 cm subpleura l mass within the right lower lobe is similar to CT of October 27, 2021. Right-sided pleural thickening is similar to present. There is a trace right pleural effusion. There is no pneumothorax. Central ai rways are patent. There is been interval development of numerous irregular nodular opacities througho ut the lungs as well as groundglass opacities. No cavitation is present. No suspicious lesions within the visualized bony thorax. Mild splenomegaly is unchanged. Upper abdomen is unremarkable. IMPRESSION: 1. No pulmonary emboli identified although right lower lobe pulmonary arteries suboptimally assessed due to mixing artifact. 2. No significant change in an 8.5 x 5.7 cm round subpleural right lower lobe mass consistent with ma lignancy. 3. Interval development of numerous groundglass and irregular densities throughout the lungs. These f avor an infectious process. Follow-up chest CT in 3 months is recommended to exclude the less likely possibility of metastatic disease. ACT 112: Negative or not required by law. Electronically signed by: Everett Garrison M.D. 12/13/2021 5:28 PM
[2021-12-13] MEDS ORDERED: DOXYCYCLINE HYCLATE 100 MG in DEXTROSE 5% 100 ML IV STA (18:04)
--- NOTE | 2021-12-13 21:32 | History & Physical Report ---
Date of Service December 13, 2021 Assessment & Plan (1) Pneumonia: Plan: Patient will be admitted for pneumonia. Will place on cefepime. will monitor overnight. recommend flutter valve in AM. f/u with hem/onc as an outpatient CPAP in the evening. (2) History of heart transplant: Plan: stable (3) Primary cancer of right lower lobe of lung: Plan: completed radiation and chemotherapy/ (4) Depression with anxiety: Plan: resume home meds Admission and Anticipated Discharge Date Admission Date: December 13, 2021 History of Present Illness Chief Complaint: Cough SOB. Primary Care Provider: Walter Araujo MD This is a pleasant 76 yo male with PMH described below. He presents to the ED with a 2 week history of worsening cough, SOB. This prompted the patient to seek medical attention. His SOB worsens with exertion. Patient reports no fever, chills. Patient completed his radiation and chemotherapy for his lung cancer and is now on infusion therapy every 28 days. Patient is doing well from a heart transpant standpoint. Allergies Allergy/AdvReac Type Severity Reaction Status Date / Time lisinopril Allergy Intermediate FACE Verified 12/13/21 17:28 SWELLED Home Medications Medication Instructions Recorded Confirmed Type calcium carbonate 500 mg-vitamin 1 tab PO QAM 07/19/19 12/13/21 History D3 10 mcg (400 unit) tablet (Calcium 500 With D) clonazepam 1 mg tablet 1 mg PO HS PRN 07/19/19 12/13/21 History ferrous sulfate 325 mg (65 mg 325 mg PO BID 07/19/19 12/13/21 History iron) tablet magnesium 250 mg tablet 500 mg PO QAM 07/19/19 12/13/21 History sertraline 100 mg tablet 150 mg PO DAILY 07/19/19 12/13/21 History acetaminophen 325 mg tablet 1,000 mg PO TID PRN #0 tab 11/15/20 12/13/21 Rx (Tylenol) potassium chloride 20 mEq 20 meq PO DAILY #30 tab 11/15/20 12/13/21 Rx tablet,extended release(part/cryst) (Klor-Con M) pravastatin 20 mg tablet 40 mg PO HS 08/26/21 12/13/21 History esomeprazole magnesium 40 mg 20 mg PO DAILY cap 11/05/21 12/13/21 History capsule,delayed release sirolimus 1 mg tablet 2 mg PO QAM 12/13/21 12/13/21 History Past Med/Surg History Medical History Coronary artery disease Dyslipidemia GERD (gastroesophageal reflux disease) Heart transplant recipient History of diverticulitis Hypertension Ischemic cardiomyopathy Surgical History History of bronchoscopy History of cataract surgery Family History Brother Cancer Bladder Other Family history non-contributory Social History Smoking Status: Former smoker Tobacco Type: Cigarettes Second Hand Exposure: Yes; Do You Dip or Chew Tobacco: No; Hx Alcohol Use: No Hx Substance Use: No Preferred Language: Lithuanian Communication Ability: Effective Visual Impairment: No Limitations Hearing Ability: Normal Health Information Specialist Required: No Beliefs That Will Affect Care: None marital status: Current Living Situation: Spouse current occupational status: employed Other Information That Helps Us Care for You: No Feels Safe at Home: Yes Safety Concerns: Feels Safe At This Time caffeine: Yes during the past year weight has: decreased > 10 lbs Dental Care, Regularly: No Physical Activity Frequency: 3-4 Times per Week Assistive Devices: Oxygen - Continuous Review of Systems Constitutional: no fever and no chills Eyes: no blind spots Ear, Nose, Mouth, Throat: no ear pain Respiratory: + cough and + dyspnea Cardiovascular: no chest pain Gastrointestinal: no abdominal pain Genitourinary: no dysuria Musculoskeletal: no back pain Integumentary: no acne Neurologic: no gait abnormality Psychiatric: no behavioral changes and no hopelessness Endocrine: + fatigue Hematologic / Lymphatic: no easy bleeding Allergy / Immunological: no GI upset with certain foods Physical Exam Constitutional: WD/WN, vitals as above (on 3 liters nc) Eyes: PERRL, conjunctivae normal, anicteric sclerae ENMT: external ear and nose normal, oropharynx normal Neck: trachea midline, no thyromegaly Respiratory: + uses accessory muscles and + cough Auscultation: + rhonchi Cardiovascular: RRR, no murmur, no edema Gastrointestinal (Abdomen): normal bowel sounds, soft, nontender, no hepatosplenomegaly Musculoskeletal: no cyanosis or clubbing, extremities motor strength 5/5 Skin: no rashes, warm and dry Neurologic: PERRL, EOMI, accommodation nl, no face palsy, no dysarthria Psychiatric: A+Ox3, euthymic affect Lymphatic: no cervical or axillary lymphadenopathy Results & Data Results & Data ([facility]) Vital Signs (Past 12 Hours) Vital Signs Temp Pulse Pulse Resp BP BP Pulse Ox 12/13/21 19:29 92 H 20 135/71 94 12/13/21 18:30 88 20 129/77 96 12/13/21 18:00 91 H 20 141/83 H 98 12/13/21 17:30 88 20 139/79 96 12/13/21 17:00 94 H 32 H 134/83 97 12/13/21 16:30 94 H 35 H 136/84 95 12/13/21 16:00 96 H 25 H 144/89 H 98 12/13/21 15:47 95 H 21 99 12/13/21 15:24 36.2 C L 103 H 16 158/84 H 86 L PG Care Time/CCT Total # of Minutes Spent Total Time Spent with Patient: Total time spent is greater than 50% in coordination of care (as documented) at patient's floor/unit and/or counseling patient: Coding Level of Care Code 99666 Initial Inpt Care Lvl 3 Diagnoses Pneumonia J18.9 Laterality: bilateral Lung location: unspecified part of lung Pneumonia type: due to unspecified organism History of heart transplant Z94.1 Primary cancer of right lower lobe of lung C34.31 Depression with anxiety F41.8 (1) Pneumonia Laterality: bilateral Lung location: unspecified part of lung Pneumonia type: due to unspecified organism Qualified Code(s): J18.9 - Pneumonia, unspecified organism
[2021-12-13] MEDS: FERROUS SULFATE 325 MG TAB PO SCH (21:55)
[2021-12-13] MEDS: PRAVASTATIN SOD 40 MG TAB PO SCH (21:55)
--- NOTE | 2021-12-14 07:55 | Electrocardiogram Report ---
Test Reason : Blood Pressure : / mmHG Vent. Rate : 096 BPM Atrial Rate : 096 BPM P-R Int : 136 ms QRS Dur : 144 ms QT Int : 386 ms P-R-T Axes : 056 023 038 degrees QTc Int : 487 ms Normal sinus rhythm Right bundle branch block Abnormal ECG When compared with ECG of 26-AUG-2021 14:39, PA interval has decreased Confirmed by Khanh Bartlett ([id number]) on 12/14/2021 7:55:20 AM Referred By: Confirmed By:Khanh Bartlett
[2021-12-14] MEDS: MAGNESIUM OXIDE 400 MG TAB PO SCH (08:16)
[2021-12-14] MEDS: FERROUS SULFATE 325 MG TAB PO SCH ×2 (08:16→21:36)
[2021-12-14] MEDS: PANTOprazole 40 MG TAB PO SCH (08:17)
[2021-12-14] MEDS: POTASSIUM CHLORIDE CRTAB 20 MEQ TABCR PO SCH (08:17)
[2021-12-14] MEDS: SERTRALINE HCL 50 MG TABLET PO SCH (08:18)
[2021-12-14] MEDS: SIROLIMUS 0.5 MG TABLET PO SCH (08:18)
[2021-12-14] MEDS ORDERED: AZITHROMYCIN 250 MG TAB PO ONE (12:57)
[2021-12-14] MEDS: CEFEPIME 2,000 MG in SYRINGE 0 ML IV SCH (15:55)
--- NOTE | 2021-12-14 21:28 | Hospitalist Progress Note ---
Date of Service December 14, 2021 Assessment & Plan (1) Pneumonia: Plan: Patient will be admitted for pneumonia. Will continue cefepime. switched to azithromycin ordered flutter valve. Due to immunosuppression, will need pseudomonas coverage.. f/u with hem/onc as an outpatient CPAP in the evening. (2) History of heart transplant: Plan: stable (3) Primary cancer of right lower lobe of lung: Plan: completed radiation and chemotherapy/ (4) Depression with anxiety: Plan: resume home meds Plan: dvt heparin Admission and Anticipated Discharge Date Admission Date: December 13, 2021 Subjective Patient reports feeling better today. He is comfortable on his 3 liters of oxyegn. Patient states at home he is not on oxygen. Patient states he has been coughing up sputum. Review of Systems Review of Systems: All systems reviewed & are unremarkable except as noted in HPI & below Physical Exam Constitutional: WD/WN, vitals as above (on 3 liters nc) Eyes: PERRL, conjunctivae normal, anicteric sclerae ENMT: external ear and nose normal, oropharynx normal Neck: trachea midline, no thyromegaly Respiratory: + uses accessory muscles and + cough Auscultation: + rhonchi Cardiovascular: RRR, no murmur, no edema Gastrointestinal (Abdomen): normal bowel sounds, soft, nontender, no hepatosplenomegaly Musculoskeletal: no cyanosis or clubbing, extremities motor strength 5/5 Skin: no rashes, warm and dry Neurologic: PERRL, EOMI, accommodation nl, no face palsy, no dysarthria Psychiatric: A+Ox3, euthymic affect Lymphatic: no cervical or axillary lymphadenopathy Results & Data Results & Data ([facility]) Vital Signs (Past 12 Hours) Vital Signs Temp Pulse Resp BP Pulse Ox 12/14/21 16:00 37.2 C 91 H 20 139/79 95 PG Care Time/CCT Total # of Minutes Spent Total Time Spent with Patient: Total time spent is greater than 50% in coordination of care (as documented) at patient's floor/unit and/or counseling patient: Coding Level of Care Code 58304 Subseq Hosp Care Lvl 3 Diagnoses Pneumonia J18.9 Laterality: bilateral Lung location: unspecified part of lung Pneumonia type: due to unspecified organism History of heart transplant Z94.1 Primary cancer of right lower lobe of lung C34.31 Depression with anxiety F41.8 (1) Pneumonia Laterality: bilateral Lung location: unspecified part of lung Pneumonia type: due to unspecified organism Qualified Code(s): J18.9 - Pneumonia, unspecified organism
[2021-12-14] MEDS: PRAVASTATIN SOD 40 MG TAB PO SCH (21:36)
[2021-12-15] MEDS: CEFEPIME 2,000 MG in SYRINGE 0 ML IV SCH ×2 (01:18→14:47)
[2021-12-15 06:58] LABS: Hematocrit (blood only) 40.7 % (42-52); Hemoglobin 12.5 g/dL (14.0-18.0); Mean Corpuscular Hemoglobin 24.4 pg (25-34); Mean Corpuscular Hgb Conc 30.7 g/dL (32-36); Mean Corpuscular Volume 79.5 fL (80-100); Mean Platelet Volume 8.9 fL (7.4-10.4); Platelet Count 217 K/uL (130-400); RDW Coefficient of Variation 16.5 % (11.5-14.5); RDW Standard Deviation 48.1 fL (36.4-46.3); Red Blood Count 5.12 M/uL (4.7-6.1); White Blood Count 7.95 K/uL (4.8-10.8)
[2021-12-15 07:20] LABS: BUN Creatinine Ratio 19.8 (10-20); Creatinine Clr Calc Pharmacy 44.2 ml/min; Est GFR (African American) 60.4 ml/min; Est GFR (Non-African American) 52.1 ml/min; Potassium 3.9 mmol/L (3.5-5.1)
[2021-12-15] MEDS: SIROLIMUS 0.5 MG TABLET PO SCH (07:34)
[2021-12-15] MEDS: AZITHROMYCIN 250 MG TAB PO SCH (07:35)
[2021-12-15] MEDS: FERROUS SULFATE 325 MG TAB PO SCH ×2 (07:35→20:25)
[2021-12-15] MEDS: PANTOprazole 40 MG TAB PO SCH (07:35)
[2021-12-15] MEDS: MAGNESIUM OXIDE 400 MG TAB PO SCH (07:35)
[2021-12-15] MEDS: POTASSIUM CHLORIDE CRTAB 20 MEQ TABCR PO SCH (07:35)
[2021-12-15] MEDS: HEPARIN SOD 5,000 UNIT/0.5 ML VIAL SQ SCH ×2 (07:36→20:26)
[2021-12-15] MEDS: SERTRALINE HCL 50 MG TABLET PO SCH (07:36)
--- NOTE | 2021-12-15 09:55 | XRay Report ---
XR chest 2V PA/lateral CLINICAL HISTORY: pneumonia COMPARISON STUDY: Chest radiograph and chest CT December 13, 2021. FINDINGS: The right lower lobe mass is better depicted on chest CT of December 13, 2021. There are median s ternotomy wires. Cardiomegaly is unchanged. There are trace bilateral pleural effusions. Reticulonodu lar interstitial thickening has slightly decreased since prior chest radiograph although this could b e due to differences in technique. No pneumothorax. IMPRESSION: 1. Slight decrease in interstitial thickening. This favors an infectious process, better depicted on prior chest CT, although pulmonary edema could appear similar. 2. Trace bilateral pleural effusions. 3. Right lower lobe mass, as shown on prior chest CT. ACT 112: Negative or not required by law. Electronically signed by: Everett aGrrison M.D. 12/15/2021 9:52 AM
--- NOTE | 2021-12-15 18:00 | Hospitalist Progress Note ---
Date of Service December 15, 2021 Assessment & Plan (1) Pneumonia: Plan: Patient will be admitted for pneumonia. Will continue cefepime. will continue azithromycin at 250 mg ordered flutter valve. Due to immunosuppression, will need pseudomonas coverage. f/u with hem/onc as an outpatient CPAP in the evening. (2) History of heart transplant: Plan: stable (3) Primary cancer of right lower lobe of lung: Plan: completed radiation and chemotherapy/ (4) Depression with anxiety: Plan: resume home meds Plan: dvt heparin Admission and Anticipated Discharge Date Admission Date: December 13, 2021 Subjective Patient reports breathing better. Patient has no new complaints today. Still requiring supplemental oxygen. Review of Systems Review of Systems: All systems reviewed & are unremarkable except as noted in HPI & below Physical Exam Constitutional: WD/WN, vitals as above (on 3 liters nc) Eyes: PERRL, conjunctivae normal, anicteric sclerae ENMT: external ear and nose normal, oropharynx normal Neck: trachea midline, no thyromegaly Respiratory: + uses accessory muscles and + cough Auscultation: + rhonchi Cardiovascular: RRR, no murmur, no edema Gastrointestinal (Abdomen): normal bowel sounds, soft, nontender, no hepatosplenomegaly Musculoskeletal: no cyanosis or clubbing, extremities motor strength 5/5 Skin: no rashes, warm and dry Neurologic: PERRL, EOMI, accommodation nl, no face palsy, no dysarthria Psychiatric: A+Ox3, euthymic affect Lymphatic: no cervical or axillary lymphadenopathy Results & Data Results & Data ([facility]) Vital Signs (Past 12 Hours) Vital Signs Temp Pulse Resp BP Pulse Ox 12/15/21 16:00 37 C 89 20 110/70 94 12/15/21 07:30 36.7 C 85 22 119/72 96 PG Care Time/CCT Total # of Minutes Spent Total Time Spent with Patient: Total time spent is greater than 50% in coordination of care (as documented) at patient's floor/unit and/or counseling patient: Coding Level of Care Code 67604 Subseq Hosp Care Lvl 2 Diagnoses Pneumonia J18.9 Laterality: bilateral Lung location: unspecified part of lung Pneumonia type: due to unspecified organism History of heart transplant Z94.1 Primary cancer of right lower lobe of lung C34.31 Depression with anxiety F41.8 (1) Pneumonia Laterality: bilateral Lung location: unspecified part of lung Pneumonia type: due to unspecified organism Qualified Code(s): J18.9 - Pneumonia, unspecified organism
[2021-12-15] MEDS: PRAVASTATIN SOD 40 MG TAB PO SCH (20:25)
[2021-12-16] MEDS: CEFEPIME 2,000 MG in SYRINGE 0 ML IV SCH ×2 (01:27→13:18)
[2021-12-16] MEDS: SIROLIMUS 0.5 MG TABLET PO SCH (07:53)
[2021-12-16] MEDS: FERROUS SULFATE 325 MG TAB PO SCH (07:54)
[2021-12-16] MEDS: SERTRALINE HCL 50 MG TABLET PO SCH (07:54)
[2021-12-16] MEDS: PANTOprazole 40 MG TAB PO SCH (07:54)
[2021-12-16] MEDS: MAGNESIUM OXIDE 400 MG TAB PO SCH (07:54)
[2021-12-16] MEDS: POTASSIUM CHLORIDE CRTAB 20 MEQ TABCR PO SCH (07:54)
[2021-12-16] MEDS: AZITHROMYCIN 250 MG TAB PO SCH (07:54)
[2021-12-16] MEDS: HEPARIN SOD 5,000 UNIT/0.5 ML VIAL SQ SCH (07:54)
[2021-12-16 14:55] VITALS: BP 127/70; TEMP 99.3; O2SAT 97
[2021-12-16 15:43] VITALS: PULSE 95
--- NOTE | 2021-12-17 07:43 | Discharge Summary ---
Date of Service Dec 16 2021 Admission HPI Per Admitting Provider This is a pleasant 76 yo male with PMH described below. He presents to the ED with a 2 week history of worsening cough, SOB. This prompted the patient to seek medical attention. His SOB worsens with exertion. Patient reports no fever, chills. Patient completed his radiation and chemotherapy for his lung cancer and is now on infusion therapy every 28 days. Patient is doing well from a heart transpant standpoint. Principal Diagnosis pneumonia Discharge Exam Constitutional WD/WN, vitals as above (on 3 liters nc) Eyes PERRL, conjunctivae normal, anicteric sclerae ENMT external ear and nose normal, oropharynx normal Neck trachea midline, no thyromegaly Respiratory Auscultation: lungs clear to auscultation bilaterally Cardiovascular RRR, no murmur, no edema Gastrointestinal (Abdomen) normal bowel sounds, soft, nontender, no hepatosplenomegaly Musculoskeletal no cyanosis or clubbing, extremities motor strength 5/5 Skin no rashes, warm and dry Neurologic PERRL, EOMI, accommodation nl, no face palsy, no dysarthria Psychiatric A+Ox3, euthymic affect Lymphatic no cervical or axillary lymphadenopathy Discharge Data Allergies Allergy/AdvReac Type Severity Reaction Status Date / Time lisinopril Allergy Intermediate FACE Verified 12/13/21 17:28 SWELLED Consultations 12/13/21 18:00 ED Decision to Admit Stat Ordered Studies 12/13/21 15:53 CT angio chest PE protocol Stat Hospital Course (1) Pneumonia: Patient will be admitted for pneumonia. Treated with cefepime and azithromycin at 250 mg ordered flutter valve. Due to immunosuppression, will need pseudomonas coverage. f/u with hem/onc as an outpatient CPAP in the evening. Will discharge on cipro to complete 6 days of antibiotic treatment. Acute respiratory failure with hypoxia, POA, resolved The medical record reflects the following clinical findings, treatment, and risk factors: Clinical Indicators: Reported SOB, hypoxia (86% on room air), tachypnea (to 35 breaths/minute) Risk Factor(s): Pneumonia. lung cancer, former smoker Treatment: Supplemental O2, Cefepime, flutter valve, radiologic exams, CPAP in evening (2) History of heart transplant: stable (3) Primary cancer of right lower lobe of lung: completed radiation and chemotherapy/ (4) Depression with anxiety: resume home meds dvt heparin Total Time Total Time Spent Total Time Spent (In Minutes): 45 Discharge Plan Discharge Items Patient Disposition: Home - Self-Care Reason For Visit: PNEUMONIA Discharge Diagnosis: pneumonia Condition on Discharge: Fair Activity: Resume your previous activity Non-emergency contact: Primary Care Provider Call non-emergency contact if: you have any medication questions Follow-up/Referrals: Walter Araujo MD [Primary Care Provider] - 12/20/21 9:10 am (APPT WITH DR NO) Diet: Regular Addtl Attending Provider Instructions: You have been hospitalized for an acute medical problem. During your stay at [facility], we have made an effort to correct the problem that brought you to the hospital while keeping you as comfortable as possible. Medications were used to bring your condition under control and your discharge instructions will include directions for any medications you should take after leaving the hospital. Please make sure you see your Primary Care Provider as part of your follow up plan. You were treated with pneumonia. Please continue antibiotics tonight. Take with meals Pending Studies at Discharge: No Stand-Alone Forms: My [facility], Smoking Cessation Medications and DC Order Prescriptions: New ciprofloxacin HCl [Cipro] 500 mg tablet 500 mg PO Q12H Qty: 6 RF: 0 Continued sertraline 100 mg tablet 150 mg PO DAILY RF: 0 clonazepam 1 mg tablet 1 mg PO HS PRN (Reason: Restless Leg(S)) RF: 0 ferrous sulfate 325 mg (65 mg iron) Tablet 325 mg PO BID RF: 0 magnesium 250 mg Tablet 500 mg PO QAM RF: 0 calcium carbonate-vitamin D3 [Calcium 500 With D] 500 mg(1,250mg) -400 unit Tablet 1 tab PO QAM RF: 0 esomeprazole magnesium 40 mg capsule,delayed release(DR/EC) 20 mg PO DAILY RF: 0 pravastatin 20 mg tablet 40 mg PO HS RF: 0 sirolimus 1 mg tablet 2 mg PO QAM RF: 0 potassium chloride [Klor-Con M20] 20 mEq Tablet,Er Particles/Crystals 20 meq PO DAILY Qty: 30 RF: 0 acetaminophen [Tylenol] 325 mg Tablet 1,000 mg PO TID PRN (Reason: Pain) Qty: 0 RF: 0 Discharge Orders: Discharge Order (Routine); Ordered 12/16/21 Ordered By: Maxx Patel Admission Data Admit Date/Time: 12/13/21 18:50 Attending Provider: Maxx Patel Admit Provider: Maxx Patel Primary Care Provider: Walter Araujo Other Providers: Maxx Patel Other Interventions: Discharge Summary Assessment (RN) Last Done: 12/16/21 15:41 Coding Level of Care Code D/C DAY MANAGEMENT >30 MINS Diagnoses Pneumonia J18.9 Laterality: bilateral Lung location: unspecified part of lung Pneumonia type: due to unspecified organism History of heart transplant Z94.1 Primary cancer of right lower lobe of lung C34.31 Depression with anxiety F41.8
== END 2021-12-16 17:45 | disposition home or self-care (01) | DRG 193 ==
LOC: ED 15:20 → 3W 18:50

== ENCOUNTER 2022-05-06 09:56 | Observation (INO) ==
--- NOTE | 2022-05-06 10:25 | Emergency Department Note ---
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 His said he had some of this yesterday as well where he seemed a little off. He has no new focal numbness or weakness although at present although when EMS called they thought he was weak on the right side that seem to have gotten better. The patient denies any complaints when I saw him upon arrival. He has no headache he did not hit his head. His was able to fill in a lot of the history as well and she tells me that he is on Coumadin for blood clot in his lung. He also has a history of a heart transplant. Denies any chest pain he has chronic oxygen but use but denies any acute shortness of breath no chest pain no abdominal pain denies numbness or weakness. No fever or chills. Home Medications Medication Instructions Recorded Confirmed Type calcium carbonate 500 mg-vitamin 1 tab PO QAM 07/19/19 05/06/22 History D3 10 mcg (400 unit) tablet (Calcium 500 With D) clonazepam 1 mg tablet 1 mg PO HS 07/19/19 05/06/22 History ferrous sulfate 325 mg (65 mg 325 mg PO BID 07/19/19 05/06/22 History iron) tablet magnesium 250 mg tablet 500 mg PO QAM 07/19/19 05/06/22 History sertraline 100 mg tablet 150 mg PO DAILY 07/19/19 05/06/22 History sirolimus 1 mg tablet 2 mg PO QAM 12/13/21 05/06/22 History omeprazole 20 mg capsule,delayed 20 mg PO DAILY 02/13/22 05/06/22 History release pravastatin 40 mg tablet 40 mg PO HS 02/13/22 05/06/22 History apixaban 5 mg tablet (Eliquis) 5 mg PO BID 05/06/22 05/06/22 History carvedilol 6.25 mg tablet 6.25 mg PO DAILY 05/06/22 05/06/22 History lorazepam 0.5 mg tablet 0.5 mg PO DAILY PRN Anxiety 05/06/22 05/06/22 History Allergies Allergy/AdvReac Type Severity Reaction Status Date / Time lisinopril Allergy Intermediate FACE Verified 02/13/22 16:15 SWELLED Past Med/Surg History Medical History Coronary artery disease Dyslipidemia GERD (gastroesophageal reflux disease) Heart transplant recipient History of diverticulitis Hypertension Ischemic cardiomyopathy Surgical History History of bronchoscopy History of cataract surgery Family History Brother Cancer Bladder Other Family history non-contributory Social History Smoking Status: Former smoker Tobacco Type: Cigarettes Second Hand Exposure: Yes; Hx Alcohol Use: No Hx Substance Use: No Preferred Language: Guamanian Communication Ability: Effective Visual Impairment: No Limitations Hearing Ability: Normal 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 Beliefs That Will Affect Care: None marital status: Current Living Situation: Spouse current occupational status: employed Feels Safe at Home: Yes caffeine: Yes during the past year weight has: decreased > 10 lbs Dental Care, Regularly: No Physical Activity Frequency: 3-4 Times per Week Assistive Devices: None Review of Systems A total of 10 systems reviewed and were otherwise negative Physical Exam Vital Signs Vital Signs - 24 hr 05/06/22 10:10 05/06/22 13:00 Temperature 37.3 C Temperature Source Oral Pulse Rate 96 H Pulse Rate [Apical] 94 H Pulse Rhythm Regular Pulse Strength Normal Respiratory Rate 18 20 Respiratory Effort / Characteristics Non-Labored Spontaneous Respiratory Depth Normal Respiratory Pattern Regular Blood Pressure 190/107 H Blood Pressure [Right Arm] 145/92 H Blood Pressure Mean 134 Blood Pressure Mean [Right Arm] 109 Blood Pressure Position Semi-fowlers Pulse Oximetry 94 92 Oxygen Delivery Method Room Air Nasal Cannula Oxygen Flow Rate 2 Sepsis Recent Fever Within 48 Hours No Sepsis New/Unexplained Change in Mental Status No Sepsis Action Taken by Nursing No Action Required General: Well developed well nourished older male who is non-ill appearing in no acute distress, breathing comfortably on room air. Normal speech, he tells me his feels slightly slurred however. He is alert on x3 answers all questions appropriately and follows commands HEENT: Normal cephalic atraumatic. Pupils are equal round and reactive to light. Extraocular movements are intact. Oropharynx is pink with moist mucous membranes. No swelling of the mouth lips or tongue. Neck: Supple with a midline trachea. No meningeal signs or stiffness, no JVD or bruits. No Stridor. Chest: Clear to auscultation in the left chest. The right chest has some decreased breath sounds in the right base. No wheezes or rhonchi. No increased work of breathing. Heart: Regular rate and rhythm without murmurs or gallops. Abdomen: Soft nontender, nondistended without rebound guarding or rigidity. Extremities: No cyanosis clubbing or edema. No calf tenderness or assymetry Spine/Back. Non tender to palpation. No CVA tenderness Skin: Good turgor without rashes. Neurologic exam: Cranial nerves two through 12 are intact. Motor and sensation are intact and symmetrical throughout. No tremor or drift. Course Administered Medications Discontinued Medications Dexamethasone Sodium Phosphate (DexamethasonePf 10 Mg/Ml Vial) 6 mg IV NOW ONE Stop: 05/06/22 10:44 Last Admin: 05/06/22 11:21 Dose: 6 mg Documented By: JACKY Critical Care Time Critical Care Time: Yes Total Critical Care Time: 35 Due to the patient's neurologic symptoms, concern for an acute stroke, calling a stroke alert in the field, discussion with stroke neurologist, neurosurgery and the hospitalist, frequent reassessment and neuro exams and IV medication, I have personally spent greater than 35 minutes of critical care time in the direct management of this patient. This includes bedside care, interpretation of diagnostic studies, and testing, discussion with consultants, patient, and family members, and other required patient management activities. This 35 minutes is in excess of all separately billable procedures. Medical Decision Making Differential Diagnosis Stroke, intracranial hemorrhage, electrolyte or metabolic abnormality, hypertensive crisis, vasogenic edema, arrhythmia, infection Medical Records Attestation: I reviewed the patient's medical records. Home Medications Current Medication List: was personally reviewed by me Laboratory Data Attestation: I reviewed the patient's lab results. Result diagrams: 05/06/22 10:08 05/06/22 10:08 Lab Results 05/06/22 05/06/22 05/06/22 Range/Units 10:08 10:08 10:08 WBC 10.35 (4.8-10.8) K/ul RBC 6.62 H (4.63-6.08) M/uL Hgb 16.4 (14.0-18.0) g/dl Hct 51.1 H (40.1-51.0) % MCV 77.2 L (80.0-100.0) fL MCH 24.8 L (25.0-34.0) pg MCHC 32.1 (32.0-36.0) g/dL RDW Std Deviation 55.5 H (36.4-46.3) fL RDW Coeff of Jazmin 21.2 H (11.5-14.5) % Plt Count 167 (130-400) K/uL MPV 9.3 L (9.4-12.4) fL Immature Gran % (Auto) 0.8 % Neut % (Auto) 76.8 % Lymph % (Auto) 10.4 % [place] % (Auto) 10.6 % Eos % (Auto) 1.3 % Baso % (Auto) 0.1 % Neut # (Auto) 7.95 H (1.4-6.5) K/uL Lymph # (Auto) 1.08 L (1.2-3.4) K/uL [place] # (Auto) 1.10 H (0.24-0.82) K/uL Eos # (Auto) 0.13 (0-0.50) K/uL Baso # (Auto) 0.01 (0-0.2) K/uL Immature Gran # (Auto) 0.08 H (0.00-0.02) K/uL Anisocytosis Present PT 12.3 H (9.0-12.0) Seconds INR 1.2 H (0.9-1.1) APTT 37.2 H (21.0-31.0) Seconds PTT Ratio 1.4 Sodium (136-145) mmol/L Potassium (3.5-5.1) mmol/L Chloride (98-107) mmol/L Carbon Dioxide (21-32) mmol/L Anion Gap (3-11) BUN (6-23) mg/dl Creatinine (0.6-1.4) mg/dl Est Cr Clr Drug Dosing ml/min Est GFR ( Amer) ml/min Est GFR (Non-Af Amer) ml/min BUN/Creatinine Ratio (10-20) Glucose (70-99(Fasting)) mg/dl POC Glucose (70-99) mg/dl Calcium (8.5-10.1) mg/dl Magnesium (1.7-2.4) mg/dl Total Bilirubin (0.2-1.0) mg/dl AST (13-39) U/L ALT (7-52) U/L Alkaline Phosphatase (34-104) U/L Troponin I High Sens (0-20) pg/ml Total Protein (6.0-8.3) gm/dl Albumin (3.4-5.0) gm/dl Globulin (2.5-4.0) gm/dl Albumin/Globulin Ratio (0.9-2) Blood Type A Positive Antibody Screen NEGATIVE 05/06/22 05/06/22 Range/Units 10:08 10:08 WBC (4.8-10.8) K/ul RBC (4.63-6.08) M/uL Hgb (14.0-18.0) g/dl Hct (40.1-51.0) % MCV (80.0-100.0) fL MCH (25.0-34.0) pg MCHC (32.0-36.0) g/dL RDW Std Deviation (36.4-46.3) fL RDW Coeff of Jazmin (11.5-14.5) % Plt Count (130-400) K/uL MPV (9.4-12.4) fL Immature Gran % (Auto) % Neut % (Auto) % Lymph % (Auto) % [place] % (Auto) % Eos % (Auto) % Baso % (Auto) % Neut # (Auto) (1.4-6.5) K/uL Lymph # (Auto) (1.2-3.4) K/uL [place] # (Auto) (0.24-0.82) K/uL Eos # (Auto) (0-0.50) K/uL Baso # (Auto) (0-0.2) K/uL Immature Gran # (Auto) (0.00-0.02) K/uL Anisocytosis PT (9.0-12.0) Seconds INR (0.9-1.1) APTT (21.0-31.0) Seconds PTT Ratio Sodium 139 (136-145) mmol/L Potassium 3.6 (3.5-5.1) mmol/L Chloride 100 (98-107) mmol/L Carbon Dioxide 30 (21-32) mmol/L Anion Gap 9 (3-11) BUN 30 H (6-23) mg/dl Creatinine 1.32 (0.6-1.4) mg/dl Est Cr Clr Drug Dosing 43.8 ml/min Est GFR ( Amer) 59.9 ml/min Est GFR (Non-Af Amer) 51.7 ml/min BUN/Creatinine Ratio 22.7 H (10-20) Glucose 100 H (70-99(Fasting)) mg/dl POC Glucose 105 H (70-99) mg/dl Calcium 9.3 (8.5-10.1) mg/dl Magnesium 2.0 (1.7-2.4) mg/dl Total Bilirubin 0.9 (0.2-1.0) mg/dl AST 20 (13-39) U/L ALT 29 (7-52) U/L Alkaline Phosphatase 92 (34-104) U/L Troponin I High Sens 15.2 (0-20) pg/ml Total Protein 7.5 (6.0-8.3) gm/dl Albumin 3.5 (3.4-5.0) gm/dl Globulin 4.0 (2.5-4.0) gm/dl Albumin/Globulin Ratio 0.9 (0.9-2) Blood Type Antibody Screen Imaging Data Attestation: I personally reviewed and interpreted this imaging study as follows: My Impression: CT of the headthere is no hemorrhage. He does have some vasogenic edema without midline shift. Radiologist's Impression: Head CT 05/06/22 10:01 CT head/brain wo con CLINICAL HISTORY: stroke alert Technique: Contiguous axial CT images of the head were acquired from the base of the skull to the vertex without intravenous contrast administration. Images were viewed in brain, subdural and bone windows. Automated dose lowering techniques and/or adjustment according to patient size were utilized for this exam. Comparison: Comparison is made to CT head 08/26/2021 and MRI head 04/08/2022 Findings: Areas of decreased attenuation are present in the periventricular and subcortic al white matter bilaterally consistent with small vessel ischemic disease. Generalized cerebral volume loss with commensurate enlargement of the ventricles, sulci, and cisterns is also present. There is hypodensity of the right cerebellum with 12 mm rightward midline shift, increased from prior. The fourth ventricle is significantly decreased in size. Previously noted discrete nodule is difficult to visualize in the background of edema. Vasogenic edema is also seen in the left parietal lobe without significant midline shift. Imaged portions of the paranasal sinuses and mastoid air cells are clear. The orbits appear normal. There are no acute fractures of the calvaria or scalp swelling. Impression: 1. Interval worsening of vasogenic edema in the right cerebellum, now with 12 mm leftward midline shift and significant mass effect upon the fourth ventricle. The central soft tissue nodule is not well visualized. 2. Vasogenic edema surrounding a mass in the left parietal lobe is approximately unchanged. ACT 112: Negative or not required by law. Electronically signed by: Brown Israel M.D. 05/06/2022 10:25 AM ECG Data Attestation: I personally reviewed and interpreted this ECG as follows: Indication: + weakness Rate (beats per minute): 98 Rhythm: + normal sinus ECG Intervals/blocks: + Right Bundle branch block ECG [place]: + Normal ECG ST segments: + Normal ST segments ECG Findings: no PACs or no PVCs Comparison ECG Date: from (12/13/21) Change: no significant change MDM Narrative This patient comes in as described above he has a very complex medical history including known brain metastases that were just treated with a gamma knife. He is also anticoagulated on Coumadin. I did call a stroke alert as he is reported to have some new neurologic deficits. He certainly is not a tPA candidate as multiple absolute contraindications including brain mets and anticoagulation use as well as he suffered a fall today. On my exam he has minimal deficits at this point and seems be doing okay. His CT does show some vasogenic edema. I did discuss the case briefly with the on-call [place] stroke telemetry neurologist but given the patient's history he was clearly not a tPA candidate. I did discuss the case with Dr. Abdi who is a neurosurgeon at [place] and I read h im a report and he says it sounds very similar to the MRI report they did down there on May 01 he recommends increasing his steroids and I had already given him steroids IV here he did not feel there is anything we need to transfer him back to [place] emergently given that he is doing well. While the patient is here he did have a bruise on his right lip which was not obvious initially which may cause some of his slurred speech. His labs look unremarkable he has no fever or white count to suggest infection he has no significant anemia. His troponin was not significantly elevated. He has no chest pain. While he was here he did receive received IV Decadron 6 mg and remained stable. I do think he needs to be admitted/observed for further evaluation. I have consulted the hospitalist to see him for these measures and he was COVID tested Continuous cardiac monitoring: Upon my evaluation patient noted be in normal sinus rhythm with a rate of 90. 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, Contusion of lip, Current use of detention anticoagulation, Weakness Forms Stand Alone Forms: My [facility] Prescriptions Prescriptions: No Action sertraline 100 mg tablet 150 mg PO DAILY clonazepam 1 mg tablet 1 mg PO HS ferrous sulfate 325 mg (65 mg iron) Tablet 325 mg PO BID magnesium 250 mg Tablet 500 mg PO QAM calcium carbonate-vitamin D3 [Calcium 500 With D] 500 mg(1,250mg) -400 unit Tablet 1 tab PO QAM sirolimus 1 mg tablet 2 mg PO QAM pravastatin 40 mg tablet 40 mg PO HS omeprazole 20 mg capsule,delayed release(DR/EC) 20 mg PO DAILY carvedilol 6.25 mg tablet 6.25 mg PO DAILY lorazepam 0.5 mg tablet 0.5 mg PO DAILY PRN (Reason: Anxiety) Eliquis 5 mg tablet 5 mg PO BID Referrals Referrals: Walter Araujo MD [Primary Care Provider] -
--- NOTE | 2022-05-06 10:26 | CT Scan Report ---
CT head/brain wo con CLINICAL HISTORY: stroke alert Technique: Contiguous axial CT images of the head were acquired from the base of the skull to the mildred ever without intravenous contrast administration. Images were viewed in brain, subdural and bone [facility]. Automated dose lowering techniques and/or adjustment according to patient size were utilized for this exam. Comparison: Comparison is made to CT head 08/26/2021 and MRI head 04/08/2022 Findings: Areas of decreased attenuation are present in the periventricular and subcortical white matter bilate rally consistent with small vessel ischemic disease. Generalized cerebral volume loss with commensura te enlargement of the ventricles, sulci, and cisterns is also present. There is hypodensity of the ri ght cerebellum with 12 mm rightward midline shift, increased from prior. The fourth ventricle is sign ificantly decreased in size. Previously noted discrete nodule is difficult to visualize in the backgr ound of edema. Vasogenic edema is also seen in the left parietal lobe without significant midline xavier ft. Imaged portions of the paranasal sinuses and mastoid air cells are clear. The orbits appear normal. There are no acute fractures of the calvaria or scalp swelling. Impression: 1. Interval worsening of vasogenic edema in the right cerebellum, now with 12 mm leftward midline sh ift and significant mass effect upon the fourth ventricle. The central soft tissue nodule is not well visualized. 2. Vasogenic edema surrounding a mass in the left parietal lobe is approximately unchanged. ACT 112: Negative or not required by law. Electronically signed by: Brown Israel M.D. 05/06/2022 10:25 AM
[2022-05-06 10:28] LABS: Basophils # (auto) 0.01 K/uL (0-0.2); Basophils % (auto) 0.1 %; Eosinophils # (auto) 0.13 K/uL (0-0.50); Eosinophils % (auto) 1.3 %; Hematocrit (blood only) 51.1 % (40.1-51.0); Hemoglobin 16.4 g/dl (14.0-18.0); Immature Granulocytes # (auto) 0.08 K/uL (0.00-0.02); Immature Granulocytes % (auto) 0.8 %; Lymphocytes # (auto) 1.08 K/uL (1.2-3.4); Lymphocytes % (auto) 10.4 %; Mean Corpuscular Hemoglobin 24.8 pg (25.0-34.0); Mean Corpuscular Hgb Conc 32.1 g/dL (32.0-36.0); Mean Corpuscular Volume 77.2 fL (80.0-100.0); Mean Platelet Volume 9.3 fL (9.4-12.4); Monocytes % (auto) 10.6 %; Neutrophils # (auto) 7.95 K/uL (1.4-6.5); Neutrophils % (auto) 76.8 %; Platelet Count 167 K/uL (130-400); RDW Coefficient of Variation 21.2 % (11.5-14.5); RDW Standard Deviation 55.5 fL (36.4-46.3); Red Blood Count 6.62 M/uL (4.63-6.08); White Blood Count 10.35 K/ul (4.8-10.8)
[2022-05-06] MEDS ORDERED: dexAMETHasone**PF** 10 MG/ML VIAL IV ONE (10:43)
[2022-05-06 10:46] LABS: Anisocytosis Present
[2022-05-06 10:49] LABS: Albumin Globulin Ratio 0.9 (0.9-2); Albumin Level 3.5 gm/dl (3.4-5.0); BUN Creatinine Ratio 22.7 (10-20); Bilirubin,Total 0.9 mg/dl (0.2-1.0); Calcium 9.3 mg/dl (8.5-10.1); Creatinine Clr Calc Pharmacy 43.8 ml/min; Est GFR (African American) 59.9 ml/min; Est GFR (Non-African American) 51.7 ml/min; Potassium 3.6 mmol/L (3.5-5.1); Total Protein 7.5 gm/dl (6.0-8.3)
[2022-05-06 10:50] LABS: INR 1.2 (0.9-1.1); Partial Thromboplastin Ratio 1.4; Partial Thromboplastin Time 37.2 Seconds (21.0-31.0); Prothrombin Time 12.3 Seconds (9.0-12.0)
[2022-05-06 10:54] LABS: Troponin I High Sensitivity 15.2 pg/ml (0-20)
[2022-05-06] MEDS ORDERED: ONDANSETRON INJ 2 MG/ML 2 ML VIAL IV PRN (15:05)
[2022-05-06] MEDS ORDERED: ACETAMINOPHEN 325 MG TAB PO PRN (15:05)
--- NOTE | 2022-05-06 17:51 | History & Physical Report ---
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 My differential includes gait instability due to worsening metastasis within his brain. CT showed increased vasogenic edema surrounding the masses in the left parietal lobe as well as the right cerebellar lobe. His peripheral neuropathy does not result in decreased proprioception or touch upon examination. Pt is on lorazepam and clonazepam as well which could have co ntributed to the fall. There were no murmurs found on exam and the EKG was not changed which decreases likelihood of a syncopal event. Seizure appears less likely as well due to the awareness during the event. (1) Gait instability -PT/OT to determine level of care pt needs outpatient -Consult Radiology/Oncology to evaluate need for targeted radiation of mets, appreciated recs -concern for safety at home given fall. Will likely need SNF -Should ambulate with walker when out of bed. (2) NSCLC stage 4 -continue following oncology -patient takes Durvalumab every 28 days -s/p gamma knife procedure on 05/01/22 -chronic dvt prophylaxis with eliquis 5 mg bid -chronically on O2 supplementation at home, continue as needed (3) Peripheral neuropathy -PT/OT eval as above, appreciate recs -Likely requires ambulatory assistance given need for walker at home (4) CKD 3a -Renal dosing medications that he may need -daily bmp (5) HTN, HLD, s/p heart transplant (2007) -HTN: Continue Carvedilol 6.25 mg po daily as prescribed -HLD: continue pravastatin; consider high intensity statin as outpatient given history of KS prior to heart transplant -Heart Transplant: continue sirolimus 2 mg PO QAM (6) Anxiety -continue lorazepam 0.5 mg once daily PRN (7) Sleep Disturbance -continue home klonipin hs prn DVT ppx: SCD's and Eliquis 5mg BID F/E/N: Regular diet Dispo: med/tele Code: full code History of Present Illness Primary Care Provider: Walter Araujo MD 76 yo male with a history of metastatic lung cancer to the brain s/p gamma knife radiation (05/01/22), peripheral neuropathy, heart transplant (2007) presenting for a fall that happened today around 6:30AM. He fell downstairs forward and into a table. His legs felt weak when this occurred. He injured his lip in the process. No one was home so he called his doctor (Dr. Jay) who recommended he go to the ER via EMS. He did not feel dizzy or light headed prior to the fall. Pt did not lose consciousness. He complained of no other injuries. There was no tongue biting. On arrival to the ER the patient had a head CT scan done which showed increased edema surrounding a mass in the left parietal lobe. He also received dexamethasone 6 mg IV and oxygen. His EKG showed RBBB but this is a chronic problem. Currently patient states that he is not feeling any dizziness, confusion, nausea, sob, headache, or chest pain. He typically requires a walker at home that he is prescribed, however, he does not use it. Of note, ED provider had discussed case with neurosurgery at [facility] [place], who felt that the imaging read was not much changed from when they had seen him last week for gamma knife procedure. Pt otherwise is doing well and has no additional complaints. Allergies Allergy/AdvReac Type Severity Reaction Status Date / Time lisinopril Allergy Intermediate FACE Verified 02/13/22 16:15 SWELLED Home Medications Medication Instructions Recorded Confirmed Type calcium carbonate 500 mg-vitamin 1 tab PO QAM 07/19/19 05/06/22 History D3 10 mcg (400 unit) tablet (Calcium 500 With D) clonazepam 1 mg tablet 1 mg PO HS 07/19/19 05/06/22 History ferrous sulfate 325 mg (65 mg 325 mg PO BID 07/19/19 05/06/22 History iron) tablet magnesium 250 mg tablet 500 mg PO QAM 07/19/19 05/06/22 History sertraline 100 mg tablet 150 mg PO DAILY 07/19/19 05/06/22 History sirolimus 1 mg tablet 2 mg PO QAM 12/13/21 05/06/22 History omeprazole 20 mg capsule,delayed 20 mg PO DAILY 02/13/22 05/06/22 History release pravastatin 40 mg tablet 40 mg PO HS 02/13/22 05/06/22 History apixaban 5 mg tablet (Eliquis) 5 mg PO BID 05/06/22 05/06/22 History carvedilol 6.25 mg tablet 6.25 mg PO DAILY 05/06/22 05/06/22 History lorazepam 0.5 mg tablet 0.5 mg PO DAILY PRN Anxiety 05/06/22 05/06/22 History Past Med/Surg History Medical History Coronary artery disease Dyslipidemia GERD (gastroesophageal reflux disease) Heart transplant recipient History of diverticulitis Hypertension Ischemic cardiomyopathy Surgical History History of bronchoscopy History of cataract surgery Family History Brother Cancer Bladder Other Family history non-contributory Social History Smoking Status: Former smoker Tobacco Type: Cigarettes Second Hand Exposure: Yes; Hx Alcohol Use: No Hx Substance Use: No Preferred Language: Citizen Of [place] Communication Ability: Effective Visual Impairment: No Limitations Hearing Ability: Normal 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 Required: No Beliefs That Will Affect Care: None marital status: Current Living Situation: Spouse current occupational status: employed Feels Safe at Home: Yes caffeine: Yes during the past year weight has: decreased > 10 lbs Dental Care, Regularly: No Physical Activity Frequency: 3-4 Times per Week Assistive Devices: None Review of Systems 2 Review of Systems: All systems reviewed & are unremarkable except as noted in HPI & below Physical Exam Physical Exam: GA: not in acute distress; pleasant HEENT: hoarseness; no conjunctival erythema, uvula midline Cardio: RRR no MRG; S1 and S2 present Lungs: non labored breathing; diminished breath sound in right lower lung field posteriorly; otherwise clear to auscultation bilaterally MSK: CN 2-11 intact NEURO: MMSE: Could not name month unless given options -Concentration: decreased; failed spelling WORLD backwards -Memory: patient recalled 1/3 objects -Speech: staccato, labored CN: CN2-12 intact Strength: 5/5 strength in all extremities Sensory: Sensory intact to light touch; proprioception intact Coordination: some dysmetria on finger to nose b/l; heel-lynch intact Gait: patient refused Skin: no rashes; purpura where IVs were placed Results & Data Results & Data ([facility] [place]) Vital Signs (Past 12 Hours) Vital Signs Temp Pulse Pulse Resp BP BP Pulse Ox 05/06/22 16:00 90 24 151/101 H 92 05/06/22 15:30 93 H 24 150/86 H 93 05/06/22 15:00 97 H 24 140/99 92 05/06/22 13:00 94 H 20 145/92 H 92 05/06/22 10:10 37.3 C 96 H 18 190/107 H 94 O2 Del Method O2 Flow Rate 05/06/22 16:00 05/06/22 15:30 05/06/22 15:00 05/06/22 13:00 Nasal Cannula 2 05/06/22 10:10 Room Air Code Status & VTE Plan VTE Prophylaxis Plan VTE Prophylaxis will be ordered: Yes Supervising Physician Co-Signing Physician Notes I personally examined the patient and verified all lockwood points of history and exam, discussed case, and agree with decision making with Dr Mckinney MS3 Legs got weak and fell. No loss of consciousness. Hit his lip on a tablebut no other trauma no neck pain. Notes that he has been getting weak pretty frequently over the last 1 to 2 weeks and his legs just gave out. Again no lightheadedness no chest pain or loss of consciousness and he felt it comingwas walking on the steps and feeling weaker, was trying to get across the room and his legs just gave out on him. Separate but related, his notes that for the last 1 to 2 weeks he has also been having a little bit more difficulty with his speech and word finding and a little more easily confused. He has been getting gamma knife at [facility] for known metastatic deposits in his parietal lobe and cerebellum. Vitals noted, in general he is awake and alert does have a degree of word finding difficulty but seems to be oriented no distress. HEENT normocephalic, right lip bruised but no laceration otherwise no notable trauma. Mucous membranes moist. Neck is supple with no bony tenderness no pain on passive or active range of motion and no noted paresthesias. Breathing is unlabored no accessory muscle use good effort. Skin shows no rashes no pallor or icterus. Neuro without localizing deficits, he has good proprioception of his feet. Fall/weakness/speech difficultyI suspect this all relates to the vasogenic edema surrounding his brain metastases. [place] [facility] [place], and reached out to local oncology as wellI suspect that corticosteroids such as Decadron, as is typical for other metastatic vasogenic edema, will be the most appropriate line of treatment with this, and will initiate suchbut given the gamma knife is somewhat specific, also wanted to ensure there is no specific management beyond steroids for gamma knife mediated vasogenic edema. [facility] neurosurgery fellow called back and did not know of any specific management beyond steroids, but no loi that he would speak with his attending (the patient's neuro oncologist) to be clear. Pt does not appear somnolent/at risk for intracranial pressure issues/etc. based on clinical assessment. Otherwise as above (1) Fall Encounter type: initial encounter Qualified Code(s): W19.XXXA - Unspecified fall, initial encounter
--- NOTE | 2022-05-06 18:25 | Billing Data ---
Date of Service May 06, 2022 Coding Level of Care Code 08611 Subseq Hosp Care Lvl 3
[2022-05-06] MEDS ORDERED: LORazepam 0.5 MG TAB PO PRN (20:31)
[2022-05-06] MEDS: PRAVASTATIN SOD 40 MG TAB PO SCH (22:41)
[2022-05-06] MEDS: APIXABAN 5 MG TABLET PO SCH (22:42)
[2022-05-06] MEDS: FERROUS SULFATE 325 MG TAB PO SCH (22:42)
[2022-05-06] MEDS: clonazePAM 1 MG TAB PO SCH (22:44)
[2022-05-07] MEDS: dexAMETHasone 4 MG in SYRINGE 0 ML IV SCH ×4 (00:39→21:04)
--- NOTE | 2022-05-07 06:07 | Electrocardiogram Report ---
Test Reason : Blood Pressure : / mmHG Vent. Rate : 098 BPM Atrial Rate : 098 BPM P-R Int : 188 ms QRS Dur : 136 ms QT Int : 376 ms P-R-T Axes : 093 -19 019 degrees QTc Int : 480 ms Poor data quality, interpretation may be adversely affected Normal sinus rhythm Right bundle branch block Abnormal ECG When compared with ECG of 13-DEC-2021 15:34, No significant change was found Confirmed by Bladimir Dow ([id number]) on 05/07/2022 6:06:47 AM Referred By: REFERRED SELF Confirmed By:Bladimir Dow
[2022-05-07 06:34] LABS: Hemoglobin 15.4 g/dl (14.0-18.0); Mean Corpuscular Hemoglobin 24.7 pg (25.0-34.0); Mean Corpuscular Hgb Conc 32.1 g/dL (32.0-36.0); Platelet Count 150 K/uL (130-400); RDW Coefficient of Variation 20.8 % (11.5-14.5); RDW Standard Deviation 54.5 fL (36.4-46.3); Red Blood Count 6.23 M/uL (4.63-6.08); White Blood Count 8.92 K/ul (4.8-10.8)
[2022-05-07 07:51] LABS: BUN Creatinine Ratio 33.6 (10-20); Calcium 9.2 mg/dl (8.5-10.1); Creatinine Clr Calc Pharmacy 51.2 ml/min; Est GFR (African American) 72.3 ml/min; Est GFR (Non-African American) 62.4 ml/min; Potassium 4.1 mmol/L (3.5-5.1)
--- NOTE | 2022-05-07 08:32 | Radiation OncologyConsultation ---
Date of Consultation May 07, 2022 Assessment & Plan (1) Malignant neoplasm of lung metastatic to brain: This is a 76-year-old gentleman who underwent heart transplant in 2007. He continues on immunosuppression. He was found to have a pleural mass in August 2020. 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 PET scan revealed this to be a clinical T4 lesion. It was stage IIIa. He was not a surgical candidate. He underwent combined radiation and chemotherapy. This completed 12/28/2020. He received 7200 cGy to the right lung and the chemotherapy was comprised of Taxol and carboplatin. He then began maintenance immunotherapy with durvalumab. Receiving this every 28 days. He developed brain metastasis in August 2021. He underwent gamma knife therapy September 05, 2021 to a right cerebellar lesion and recieved 20 Gy to 50% IDL ([facility]). He then developed a left parietal lesion and received 20 Gy on 05/01/2022 ([facility]). Posttreatment he was on dexamethasone. He had a fall at home and was brought to the emergency room. 05/06/2022. CT of the head shows worsening vasogenic edema. He is appropriately on IV dexamethasone 4 mg every 6 hours. Recommendations are for him to have an MRI of the brain. Once discharged he should be referred back to [facility] to Dr. Benitez Huntley. Plan ATTENDING ADDENDUM: Patient was seen and examined at bedside. I agree with the note documented by the midlevel provider. Assessment: 76-year-old gentleman with history of heart transplant on immunosuppression with metastatic lung cancer previously treated with chemotherapy and radiation therapy currently on immunotherapy with durvalumab. The patient has received 2 previous courses of gamma knife radiosurgery at [facility] in August 2021 and more recently in April 2022. The patient presents the emergency room with a fall and did have a CT of the head which did show increased vasogenic edema involving the right cerebellar hemisphere. We have been asked to evaluate the patient for further recommendations. Recommendations/Plan: 1. At this point, I would recommend obtaining an MRI of the brain with contrast to better understand the status of his prior metastatic disease as well as if there is any new metastatic lesions contributing to the vasogenic edema in the right cerebellar region. The vasogenic edema is potentially related to his previous therapy and an MRI of the brain would be useful to potentially determine of recurrent disease versus radiation necrosis versus new metastatic disease. 2. The patient will require a Decadron taper and will need to be referred back to neurosurgery/radiation oncology at [facility] for further evaluation regarding treatment given the fact that he has had 2 courses of previous gamma knife radiosurgery with 1 course shortly been completed several days ago. 3. The patient will also require follow-up with medical oncology in the outpatient setting. 4. We will continue to follow the patient while he is in the hospital and document as needed. Further recommendations will follow completion of MRI of t he brain. No radiation therapy at this time. Please call us with any further questions or concerns. History of Present Illness Reason for Consultation: Evaluation of patient who is recently undergoing gamma knife procedure. Attending Physician: Jarrett Damian DO History of Present Illness 2007. Heart transplant. 2020. Weight loss associated with decreased appetite. Cough also noted. 08/24/2020. Pleural mass, right, fine-needle aspiration. 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 09/17/2020. PET/CT. Impression: Large peripherally intensely FDG avid and likely centrally necrotic right pleural-based lower lobe mass, compatible with findings of biopsy-proven poorly differentiated carcinoma. No definite evidence of metastatic disease at this time. Diffuse increased avidity throughout the stomach, particularly within the body and antrum, which may reflect gastritis. Recommend correlation with patient's symptoms, with consideration for endoscopy if clinically indicated. 09/26/2020. Bronchoscopy with EBUS biopsy. Station 4L, 7, 11L, 11R are all negative for malignancy. 10/18/2020. Outpatient letter from Dr. Deleon. Dr. Deleon has advised against surgical resection due to the patient's multiple medical comorbidities including his history of heart transplantation and immunosuppressive therapy. Dr. Deleon has suggested consideration for radiation therapy as well as chemotherapy. 10/19/2020. Radiation oncology consultation with Dr. Antunez. Recommendation from multidisciplinary tumor board is to proceed with definitive chemotherapy and radiation therapy. 10/24/2020. MRI brain. Impression: Unremarkable brain MRI. No evidence of metastatic disease. There is a subcentimeter rounded area of T1 hypointensity with SWI blooming within the right lower jose r, question cavernoma. No evidence of acute hemorrhage. 12/28/2020. Status post completion of combined radiation and chemotherapy. He received 7200 cGy. Chemotherapy comprised of weekly Taxol and carboplatin. 02/05/2021. Ongoing treatment with durvalumab every 28 days. 08/26/2021. CT of the brain. Finding of vasogenic edema and suspected underlying lesion right cerebellum. 09/05/2021. Gamma knife procedure. He received 20 [place] to the right cerebellar metastasis. 02/13/2022. Brain MRI. 3.0 cm enhancing lesion in the right cerebellum. This is unchanged to minimally increased in size from 01/31/2022. There was surrounding edema and mild effacement of the fourth ventricle. There was a new 7 mm lesion in the left parietal lobe. 04/08/2022. Brain MRI. Interval enlargement of enhancing mass in the left parietal lobe and right cerebellum with surrounding vasogenic edema, compatible with worsening metastatic disease. 05/01/2022. Gamma knife procedure to the left parietal metastatic lesion. He received 20 Gy. Patient was discharged on dexamethasone 4 mg twice daily for 1 week. This was then decreased to 2 mg twice daily. He is remained on this dose. He was coming down the steps yesterday. After reaching a final step he turned to the right and then fell to the ground. He did injure his left lower lip. He was brought to the emergency room for evaluation. 05/06/2022. CT of head. Interval worsening of vasogenic edema in the right cerebellum, now with 12 mm leftward midline shift and significant mass-effect upon the fourth ventricle. The central soft tissue nodule is not well visualiz ed. Vasogenic edema surrounding a mass in the left parietal lobe is approximately unchanged. Allergies Allergy/AdvReac Type Severity Reaction Status Date / Time lisinopril Allergy Intermediate FACE Verified 02/13/22 16:15 SWELLED Home Medications Medication Instructions Recorded Confirmed Type calcium carbonate 500 mg-vitamin 1 tab PO QAM 07/19/19 05/06/22 History D3 10 mcg (400 unit) tablet (Calcium 500 With D) clonazepam 1 mg tablet 1 mg PO HS 07/19/19 05/06/22 History ferrous sulfate 325 mg (65 mg 325 mg PO BID 07/19/19 05/06/22 History iron) tablet magnesium 250 mg tablet 500 mg PO QAM 07/19/19 05/06/22 History sertraline 100 mg tablet 150 mg PO DAILY 07/19/19 05/06/22 History sirolimus 1 mg tablet 2 mg PO QAM 12/13/21 05/06/22 History omeprazole 20 mg capsule,delayed 20 mg PO DAILY 02/13/22 05/06/22 History release pravastatin 40 mg tablet 40 mg PO HS 02/13/22 05/06/22 History apixaban 5 mg tablet (Eliquis) 5 mg PO BID 05/06/22 05/06/22 History carvedilol 6.25 mg tablet 6.25 mg PO DAILY 05/06/22 05/06/22 History lorazepam 0.5 mg tablet 0.5 mg PO DAILY PRN Anxiety 05/06/22 05/06/22 History Patient History Medical History Coronary artery disease Dyslipidemia GERD (gastroesophageal reflux disease) Heart transplant recipient History of diverticulitis Hypertension Ischemic cardiomyopathy Surgical History History of bronchoscopy History of cataract surgery Family History Brother Cancer Bladder Other Family history non-contributory Social History Smoking Status: Never smoker Tobacco Type: Cigarettes Second Hand Exposure: Yes; Hx Alcohol Use: No Hx Substance Use: No Preferred Language: [place] Communication Ability: Effective Visual Impairment: No Limitations Hearing Ability: Normal Speech And Language Assistant Required: No Beliefs That Will Affect Care: None marital status: Current Living Situation: Spouse current occupational status: employed Feels Safe at Home: Yes caffeine: Yes during the past year weight has: decreased > 10 lbs Dental Care, Regularly: No Physical Activity Frequency: 3-4 Times per Week Assistive Devices: Oxygen - Continuous Review of Systems Review of Systems: 13 point review of systems negative other than what is mentioned in the history of present illness. Physical Exam Constitutional: WD/WN, vitals as above well developed and well nourished Eyes: PERRL, conjunctivae normal, anicteric sclerae ENMT: Mouth: + lip abnormality (Right lower lip ecchymosis.) Neck: trachea midline, no thyromegaly Respiratory: normal respiratory effort, lungs clear to auscultation Cardiovascular: RRR, no murmur, no edema Gastrointestinal (Abdomen): normal bowel sounds, soft, nontender, no hepatosplenomegaly Musculoskeletal: no cyanosis or clubbing, extremities motor strength 5/5 Skin: no rashes, warm and dry Neurologic: PERRL, EOMI, accommodation nl, no face palsy, no dysarthria Good strength and coordination of upper and lower extremities. Psychiatric: A+Ox3, euthymic affect Results (Rad Onc) [facility], [phone] CT Scan Report Patient: POLA LITTLE Date: 05/06/22MR#: [id number]: [id number] DRAcct ID:[id number]: Date: 1945[facility] Zip: [place], [place] [address]Mai: [id number]: EDSex: MRoom/Bed:Att Phy:Diagnosis: ConfusedPri Phy: Osbaldo Araujo MDService Date: 05/06/22Fa Phy:In terpreting Phy: Brown Israel [facility] Phy: Ordering Phy: Zbigniew Chahal M.D. cc: ~ CT head/brain wo con CLINICAL HISTORY: stroke alert Technique: Contiguous axial CT images of the head were acquired from the base of the skull to the vertex without intravenous contrast administration. Images were viewed in brain, subdural and bone windows. Automated dose lowering techniques and/or adjustment according to patient size were utilized for this exam. Comparison: Comparison is made to CT head 08/26/2021 and MRI head 04/08/2022 Findings: Areas of decreased attenuation are present in the periventricular and subcortical white matter bilaterally consistent with small vessel ischemic disease. Generalized cerebral volume loss with commensurate enlargement of the ventricles, sulci, and cisterns is also present. There is hypodensity of the right cerebellum with 12 mm rightward midline shift, increased from prior. The fourth ventricle is significantly decreased in size. Previously noted discrete nodule is difficult to visualize in the background of edema. Vasogenic edema is also seen in the left parietal lobe without significant midline shift. Imaged portions of the paranasal sinuses and mastoid air cells are clear. The orbits appear normal. There are no acute fractures of the calvaria or scalp swelling. Impression: 1. Interval worsening of vasogenic edema in the right cerebellum, now with 12 mm leftward midline shift and significant mass effect upon the fourth ventricle. The central soft tissue nodule is not well visualized. 2. Vasogenic edema surrounding a mass in the left parietal lobe is approximately unchanged. ACT 112: Negative or not required by law. Electronically signed by: Brown Israel M.D. 05/06/2022 10:25 AM Dictated: 05/06/221008Transcribed: 05/06/221008 Time Spent Midlevel I spent [10] minutes in preparation for this follow up evaluation including reviewing all the clinical records, reviewing laboratory studies, pathology reports and imaging results. I spent [15] minutes with direct face to face interaction with the patient and/or family including performing a physical exam and answering all questions. I spent [15] minutes documenting this patient's visit.
[2022-05-07] MEDS: PANTOprazole 40 MG TAB PO SCH (08:47)
[2022-05-07] MEDS: APIXABAN 5 MG TABLET PO SCH ×2 (08:47→21:05)
[2022-05-07] MEDS: carvediloL 6.25 MG TAB PO SCH (08:48)
[2022-05-07] MEDS: FERROUS SULFATE 325 MG TAB PO SCH ×2 (08:48→21:05)
[2022-05-07] MEDS: CALCIUM 600MG + VIT D 400 IU TAB PO SCH (08:48)
[2022-05-07] MEDS: SERTRALINE HCL 50 MG TABLET PO SCH (08:48)
[2022-05-07] MEDS: MAGNESIUM OXIDE 400 MG TAB PO SCH (08:48)
[2022-05-07] MEDS: SIROLIMUS 0.5 MG TABLET PO SCH (08:49)
--- NOTE | 2022-05-07 16:53 | Medical Student Progress Note ---
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 My differential includes gait instability due to worsening metastasis within his brain. CT showed increased vasogenic edema surrounding the masses in the left parietal lobe as well as the right cerebellar lobe. His peripheral neuropathy does not result in decreased proprioception or touch upon examination. Pt is on lorazepam and clonazepam as well which could have contributed to the fall. There were no murmurs found on exam and the EKG was not changed which decreases likelihood of a syncopal event. Seizure appears less likely as well due to the awareness during the event. Pt will likely benefit from continued dexamethasone outpatient with follow up May 14 2022. (1) Gait instability -PT/OT to determine level of care pt needs outpatient: Need home services but otherwise cleared for discharge to home -Consult Radiology/Oncology to evaluate need for targeted radiation of mets, appreciated recs -Dexamethasone 4mg q6h IV -Pt improved -Should ambulate with walker when out of bed. -Pt requires O2 ambulating; however, the patient already has oxygen at home; no 2 step required -Pt should be ready for discharge tomorrow; Taper Dexamethasone PO; follow up with Dr. Masterson 8:30 AM (Dr. Araujo supervising) (2) NSCLC stage 4 -continue following oncology -patient takes Durvalumab every 28 days -s/p gamma knife procedure on 05/01/22 -chronic dvt prophylaxis with eliquis 5 mg bid -CBC qAM -Follow up with primary care next week (3) Peripheral neuropathy -PT/OT eval as above, appreciate recs -Likely requires ambulatory assistance given need for walker at home (4) CKD 3a -Renal dosing medications that he may needs -daily bmp (5) HTN, HLD, s/p heart transplant (2007) -HTN: Continue Carvedilol 6.25 mg po daily as prescribed -HLD: continue pravastatin; consider high intensity statin as outpatient given history of [place] prior to heart transplant -Heart Transplant: continue sirolimus 2 mg PO QAM (6) Anxiety -continue lorazepam 0.5 mg once daily PRN (7) Sleep Disturbance -continue home klonipin hs prn DVT ppx: SCD's and Eliquis 5mg BID F/E/N: Regular diet Dispo: med/surg Code: full code Encounter type: initial encounter Qualified Code(s): W19.XXXA - Unspecified fall, initial encounter Admission and Anticipated Discharge Date Admission Date: May 06, 2022 Supervising Attestation I personally examined the patient and verified all [place] points of history and exam, discussed case, and agree with decision making with A Faye MS3 Feeling better. Speech is better. More steady on his feet. Feels like he would do well at [facility] that his would feel safer with 1 more day. Vitals noted, in general he is awake and alert pleasant no distress. HEENT normocephalic other than the bruise on his lip atraumatic. Mucous membranes moist. His speech is much more fluent he seems to have less difficulty finding words. Breathing unlabored no accessory muscle use good effort. Skin shows no rashes no pallor or icterus. Brain metastases with vasogenic edemaimproving on steroids. Continue current care for now, and discussion with oncology locally, generally once his steroids get reduced to lower doses he seems to have rebound symptomsto that end, probably will need to keep on higher dosing for a longer period of time with close monitoring. Hopefully home tomorrow. Otherwise as above. Subjective no overnight events. Feeling well, no concerns, no valentine, fever, chest pain, sob, nausea, vomiting. Still unsteady but can use a walker. Pt would like to stay overnight. Review of Systems Review of Systems: All systems reviewed & are unremarkable except as noted in HPI & below Physical Exam Physical Exam: GA: euthymic, well appearing Cardio: Lung: clear b/l except diminished right lower lung field Neuro: A&Ox3; 3+ diffuse; dysmetria on finger to nose test Results & Data ([facility]) Vital Signs (Past 12 Hours) Vital Signs Temp Pulse Pulse Resp BP BP Pulse Ox 05/07/22 15:42 36.7 C 91 H 19 130/82 90 05/07/22 12:44 37.2 C 86 17 124/83 90 05/07/22 11:25 05/07/22 08:00 86 05/07/22 08:03 36.8 C 84 18 173/101 H 90 Pulse Ox O2 Del Method O2 Flow Rate 05/07/22 15:42 Room Air 05/07/22 12:44 Room Air 05/07/22 11:25 92 0 05/07/22 08:00 05/07/22 08:03 Room Air
[2022-05-07] MEDS ORDERED: Nursing to Pharmacy Communication SCH (18:45)
--- NOTE | 2022-05-07 18:50 | Billing Data ---
Date of Service May 07, 2022 Coding Level of Care Code 71844 Subseq Obs Care Lvl 2
--- NOTE | 2022-05-07 18:50 | Billing Data ---
Date of Service May 06, 2022 Coding Level of Care Code INT OBSERVATION CARE 70M LVL 3 Comment disregard [id number] - entered in error
[2022-05-07] MEDS: PRAVASTATIN SOD 40 MG TAB PO SCH (21:05)
[2022-05-07] MEDS: clonazePAM 1 MG TAB PO SCH (21:06)
[2022-05-08] MEDS: dexAMETHasone 4 MG in SYRINGE 0 ML IV SCH ×2 (03:35→08:16)
[2022-05-08 03:45] VITALS: TEMP 97.9
[2022-05-08 06:31] VITALS: BP 160/94; O2SAT 90
[2022-05-08 07:13] LABS: Hematocrit (blood only) 49.5 % (40.1-51.0); Hemoglobin 15.6 g/dl (14.0-18.0); Mean Corpuscular Hemoglobin 24.5 pg (25.0-34.0); Mean Corpuscular Hgb Conc 31.5 g/dL (32.0-36.0); Mean Corpuscular Volume 77.6 fL (80.0-100.0); Mean Platelet Volume 9.3 fL (9.4-12.4); Platelet Count 194 K/uL (130-400); RDW Coefficient of Variation 20.8 % (11.5-14.5); Red Blood Count 6.38 M/uL (4.63-6.08); White Blood Count 14.25 K/ul (4.8-10.8)
[2022-05-08 07:40] LABS: BUN Creatinine Ratio 36.6 (10-20); Calcium 9.2 mg/dl (8.5-10.1); Creatinine Clr Calc Pharmacy 44.2 ml/min; Est GFR (African American) 60.4 ml/min; Est GFR (Non-African American) 52.1 ml/min; Potassium 3.8 mmol/L (3.5-5.1)
--- NOTE | 2022-05-08 08:04 | Discharge Summary ---
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 He fell downstairs forward and into a table. His legs felt weak when this occurred. He injured his lip in the process. No one was home so he called his doctor (Dr. Jay) who recommended he go to the ER via EMS. He did not feel dizzy or light headed prior to the fall. Pt did not lose consciousness. He complained of no other injuries. There was no tongue biting. On arrival to the ER the patient had a head CT scan done which showed increased edema surrounding a mass in the left parietal lobe. He also received dexamethasone 6 mg IV and oxygen. His EKG showed RBBB but this is a chronic problem. Currently patient states that he is not feeling any dizziness, confusion, nausea, sob, headache, or chest pain. He typically requires a walker at home that he is prescribed, however, he does not use it. O f note, ED provider had discussed case with neurosurgery at [place], who felt that the imaging read was not much changed from when they had seen him last week for gamma knife procedure. Pt otherwise is doing well and has no additional complaints. Principal Diagnosis Fall Discharge Exam Constitutional WD/WN, vitals as above (on 2 liters nc) Eyes PERRL, conjunctivae normal, anicteric sclerae ENMT external ear and nose normal, oropharynx normal Neck trachea midline, no thyromegaly Respiratory Auscultation: lungs clear to auscultation bilaterally Cardiovascular RRR, no murmur, no edema Gastrointestinal (Abdomen) normal bowel sounds, soft, nontender, no hepatosplenomegaly Musculoskeletal no cyanosis or clubbing, extremities motor strength 5/5 Skin no rashes, warm and dry Neurologic PERRL, EOMI, accommodation nl, no face palsy, no dysarthria Psychiatric A+Ox3, euthymic affect Lymphatic no cervical or axillary lymphadenopathy Discharge Data Allergies Allergy/AdvReac Type Severity Reaction Status Date / Time lisinopril Allergy Intermediate FACE Verified 02/13/22 16:15 SWELLED Consultations 05/06/22 11:58 ED Decision to Admit Stat 05/06/22 15:22 Consult Radiation Oncology Stat Ordered Studies 05/06/22 10:01 CT head/brain wo con Stat Hospital Course (1) Fall: 76 yo male with a history of 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 My differential includes gait instability due to worsening metastasis within his brain. CT showed increased vasogenic edema surrounding the masses in the left parietal lobe as well as the right cerebellar lobe. His peripheral neuropathy does not result in decreased proprioception or touch upon examination. Pt is on lorazepam and clonazepam as well which could have contributed to the fall. There were no murmurs found on exam and the EKG was not changed which decreases likelihood of a syncopal event. Seizure appears less likely as well due to the awareness during the event. Pt will likely benefit from continued dexamethasone outpatient with follow up May 14 2022. (1) Gait instability due to cerebral edema -Likely secondary to recent gamma knife radiation and sequential brain swelling -PT/OT to determine level of care pt needs outpatient: Need home services but otherwise cleared for discharge to home -Consult Radiology/Oncology to evaluate need for targeted radiation of mets: No active intervention currently -Dexamethasone 4mg q6h IV transition to p.o. with taper: 4mg po qid for 1 week, tid for the following week, bid thereafter until seen by oncology or PCP for further changes -Pt improved -Should ambulate with walker when out of bed and at home -Pt requires O2 ambulating; however, the patient already has oxygen at home; no 2 step required -Taper Dexamethasone PO; follow up with Dr. Masterson 8:30 AM (Dr. Araujo supervising) (2) NSCLC stage 4 -continue following oncology -patient takes Durvalumab every 28 days -s/p gamma knife procedure on 05/01/22 -chronic dvt prophylaxis with eliquis 5 mg bid -Follow up with primary care next week (3) Peripheral neuropathy -PT/OT eval as above, appreciate recs: no further PT needed -Likely requires ambulatory assistance given need for walker at home (4) CKD 3a -Renal dosing medications that he may needs -daily bmp (5) HTN, HLD, s/p heart transplant (2007) -HTN: Continue Carvedilol 6.25 mg po daily as prescribed -HLD: continue pravastatin; consider high intensity statin as outpatient given history of [place] prior to heart transplant -Heart Transplant: continue sirolimus 2 mg PO QAM (6) Anxiety -continue lorazepam 0.5 mg once daily PRN (7) Sleep Disturbance -continue home klonipin hs prn DVT ppx: SCD's and Eliquis 5mg BID F/E/N: Regular diet Dispo: Discharge home Code: full code Total Time Total Time Spent Total Time Spent (In Minutes): <30 Discharge Plan Discharge Items Patient Disposition: Home - Self-Care Reason For Visit: FALL Discharge Diagnosis: Vasogenic brain edema Activity: Per Instructions section Non-emergency contact: Primary Care Provider and Oncologist Call non-emergency contact if: you have any medication questions and your symptoms worsen Follow-up/Referrals: Walter Araujo MD [Primary Care Provider] - 05/14/22 8:30 am (Referral already made, pt scheduled for 05/14/22 at 8:30 AM) Diet: Regular Addtl Attending Provider Instructions: You were seen in the hospital for evaluation for a fall. He recently had a gamma knife procedure done at the site of one of your metastatic lesions in your brain. Due to this, your brain was experience increased swelling which may have been a factor associated with the weakness that caused your fall. While you were here you were given high-dose steroids and your symptoms seemed to improve. For this reason, we are sending a prescription of steroids to your pharmacy, please take them as instructed: 4 mg of dexamethasone 4 times a day for 1 week, 3 times a day for the following week, and twice a day thereafter. Please follow-up with your primary care provider next week. An appointment has already been made for you with Dr. Masterson at 8:30 in the morning on 05/14/2022. In the meantime, we do recommend that you continue utilization of a walker to help you ambulate. It has been a pleasure to be a part of your care and we wish you the best in both your health and recovery. Pending Studies at Discharge: No Stand-Alone Forms: My ipvive, Smoking Cessation Medications and DC Order Prescriptions: New dexamethasone 4 mg tablet See Rx Instructions .ROUTE .COMPLEX Qty: 77 0RF Rx Instructions: 4 mg orally 4 times a day for the first week, 3 times a day for the second week, and 2 times a day thereafter Continued sertraline 100 mg tablet 150 mg PO DAILY clonazepam 1 mg tablet 1 mg PO HS ferrous sulfate 325 mg (65 mg iron) Tablet 325 mg PO BID magnesium 250 mg Tablet 500 mg PO QAM calcium carbonate-vitamin D3 [Calcium 500 With D] 500 mg(1,250mg) -400 unit Tablet 1 tab PO QAM sirolimus 1 mg tablet 2 mg PO QAM pravastatin 40 mg tablet 40 mg PO HS omeprazole 20 mg capsule,delayed release(DR/EC) 20 mg PO DAILY carvedilol 6.25 mg tablet 6.25 mg PO DAILY lorazepam 0.5 mg tablet 0.5 mg PO DAILY PRN (Reason: Anxiety) Eliquis 5 mg tablet 5 mg PO BID Discharge Orders: Discharge Order (Routine); Ordered 05/08/22 Ordered By: Jamil Bañuelos Admission Data Admit Date/Time: 05/06/22 15:05 Attending Provider: Jarrett Damian Admit Provider: Jamil Bañuelos Primary Care Provider: Walter Araujo Other Providers: Josias Barahona ; Jarrett Damian Other Interventions: Discharge Summary Assessment (RN) Last Done: 05/08/22 10:23 Supervising Physician Co-Signing Physician Notes I personally examined the patient and verified all [place] points of history and exam, discussed case, and agree with decision making with Dr Bañuelos. feels good wants to go home, feels good about him going home. Vitals noted, in general he is awake and alert nad. speech more fluent. lip bruise healing. breathing unlabored no accessory muscles good effort skin no rashes no pallor or icterus neuro overall stable except for more fluent speech. Fall/weakness/speech difficultyI suspect this all relates to the vasogenic edema surrounding his brain metastases. doing better on increased steroids. safe/stable for home - prolonged higher dosing, slow taper, close outpt f/u. Otherwise as above
[2022-05-08] MEDS: FERROUS SULFATE 325 MG TAB PO SCH (08:17)
[2022-05-08] MEDS: CALCIUM 600MG + VIT D 400 IU TAB PO SCH (08:17)
[2022-05-08] MEDS: SERTRALINE HCL 50 MG TABLET PO SCH (08:17)
[2022-05-08] MEDS: MAGNESIUM OXIDE 400 MG TAB PO SCH (08:18)
[2022-05-08] MEDS: carvediloL 6.25 MG TAB PO SCH (08:18)
[2022-05-08] MEDS: SIROLIMUS 0.5 MG TABLET PO SCH (08:18)
[2022-05-08] MEDS: PANTOprazole 40 MG TAB PO SCH (08:18)
[2022-05-08] MEDS: APIXABAN 5 MG TABLET PO SCH (08:18)
--- NOTE | 2022-05-08 08:20 | Radiation Oncology Progress Nt ---
Date of Service May 08, 2022 Assessment & Plan (1) Malignant neoplasm of lung metastatic to brain: Plan: 76-year-old gentleman with metastatic lung cancer to the brain. Has completed 2 gamma knife procedures. Most recently on 05/01/2022. Developed vasogenic edema. He had a fall and was hospitalized. He is steadily improving and is going to be discharged possibly today. He will continue on a steroid taper. He can follow-up with his primary care provider and medical oncology. He stated that arrangements are being made for him to have a follow-up appointment with [facility]. He will need to have an MRI the same day prior to the doctor visit. He can keep his routine follow-up appointment with our office. Admission and Anticipated Discharge Date Admission Date: May 06, 2022 Subjective Patient seen at bedside. He is doing well. Steadily improving. He has no complaints of headaches or dizziness. Has had no issues with ambulation while hospitalized. He has had no nausea. He continues on the dexamethasone. Plans are being made for him to be discharged. He is also going to be following up at [facility]. He will need to have a MRI at the time of that visit. He will continue follow-up with medical oncology. Review of Systems Review of Systems: Unchanged review of systems. Physical Exam Constitutional: WD/WN, vitals as above Eyes: PERRL, conjunctivae normal, anicteric sclerae ENMT: Mouth: + lip abnormality (Ecchymosis of the lower lip is improving.) Respiratory: normal respiratory effort Cardiovascular: RRR, no murmur, no edema Neurologic: CN's II-XI intact bilaterally Speech / Cognition: normal speech Motor/Sensory: no tremor and normal movement Results & Data ([facility]) Vital Signs (Past 12 Hours) Vital Signs Temp Pulse Pulse Resp BP Pulse Ox O2 Del Method 05/08/22 06:30 36.6 C 88 18 160/94 H 90 Nasal Cannula 05/08/22 03:44 36.6 C 72 18 121/77 95 Room Air 05/07/22 23:16 36.9 C 80 16 113/82 95 Room Air 05/07/22 21:10 Nasal Cannula 05/07/22 22:11 88 O2 Flow Rate 05/08/22 06:30 2 05/08/22 03:44 05/07/22 23:16 05/07/22 21:10 2 05/07/22 22:11
[2022-05-08 10:27] VITALS: PULSE 94
--- NOTE | 2022-05-08 17:52 | Billing Data ---
Date of Service May 08, 2022 Coding Level of Care Code 29633 OBS Care - Discharge
== END 2022-05-08 11:25 | disposition home or self-care (01) ==
LOC: 2W 09:56 → ED 09:56 → 2W 20:57